=== PATIENT | female | born 1935 | race Caucasian/White ===

== ENCOUNTER → 2019-05-02 | Outpatient (CLI) | payer MEDICARE, OTHER, SELFPAY | PROVIDERS: PCP Family Medicine; Visit Provider Internal Medicine Critical Care Medicine | DX: J43.2 Centrilobular emphysema (principal) | CPT/HCPCS: 86038 ×2; 85025; 86430; 36415; 82785; 86226; 86235 ×5; 83520; 82104; 86003 ×26 ==

== ENCOUNTER 2019-12-27 10:55 | Outpatient (CLI) | payer MEDICARE, OTHER, SELFPAY ==
--- NOTE | ~2019-12-27 | CT_ITS ---
EXAMINATION: CT chest wo con DATE: 12/27/2019 11:39 INDICATION: Pulmonary nodule TECHNIQUE: Computed tomography (CT) of the chest was performed without intravenous contrast. The dose -length product (DLP) was 68.52 mGy-cm. Automated exposure control and iterative reconstruction techn ique were employed. COMPARISON: 01/12/2019, 07/19/2018 FINDINGS: Again seen are scattered pulmonary nodules measuring up to 7 mm without significant change. No new pulmonary nodules are identified. There is no pleural effusion or pneumothorax. Mild emphysem a is noted. There is scarring of the right lung apex. The lungs are free of acute opacities. No patho logically enlarged thoracic lymph nodes are identified. The heart size is normal. Calcified coronary artery atherosclerosis is noted. There is a small sliding hiatal hernia. Chronic anterior wedging is noted in multiple thoracic vertebral bodies. There is moderate thoracic spondylosis. IMPRESSION: 1. Multiple stable pulmonary nodules, most consistent with old granulomatous disease. Reviewed, dictated and finalized at location A. IMPRESSION: 1. Multiple stable pulmonary nodules, most consistent with old granulomatous di sease.
== END 2019-12-27 10:56 | disposition home or self-care (01) ==
PROVIDERS: PCP Family Medicine; Visit Provider Nurse Practitioner Family
DX: R91.8 Other nonspecific abnormal finding of lung field (principal)
CPT/HCPCS: 71250

== ENCOUNTER 2020-04-18 14:03 | Emergency (ER) | payer MEDICARE, OTHER, SELFPAY ==
[2020-04-18] VITALS (12 sets, daily range): BP systolic 138–155; BP diastolic 56–64; PULSE 55–66; RESP 17–18; TEMP 37.1; O2SAT 92–100
--- NOTE | ~2020-04-18 | XR_ITS ---
EXAMINATION: XR wrist LT 2V INDICATION: Left wrist pain and deformity, initial encounter TECHNIQUE: Two views of the left wrist are obtained. COMPARISON: None available FINDINGS: There is an acute, traumatic, closed, oblique fracture of the distal radius. The distal fra cture fragment is dorsally displaced and overriding by approximately 1 cm. There is an acute, traumat ic, closed, oblique fracture of the distal ulna. The distal fracture fragment is also dorsally displa melody and overriding by approximately 1 cm. Soft tissue swelling surrounds the fractures. No additional acute osseous abnormality is identified. There is moderate osteoarthritis of the wrist. IMPRESSION: 1. Displaced and overriding fractures of the distal radius and ulna. Reviewed, dictated and finalized at location A.
--- NOTE | 2020-04-18 14:15 | PC.NURSE ---
pt had lunch at noon .
--- NOTE | 2020-04-18 14:38 | ED.FALL ---
HPI - Fall General Chief Complaint: Fall Stated Complaint: FALL/L WRIST INJURY Time Seen by Provider: 04/18/20 14:33 History of Present Illness HPI Narrative: Fall off of a step ladder onto outstretched left hand. Deformity noted to left wrist with overlying wound. Splinted and given morphine by EMS. Pain is mild on arrival to the ED. No additional pain or injury at this time. Related Data Home Medications Medication Instructions Recorded Confirmed Benefiber Healthy Shape 05/28/19 02/01/20 Probiotic 05/28/19 02/01/20 loratadine [Claritin] 10 mg PO DAILY 05/28/19 02/01/20 montelukast [Singulair] 10 mg PO DAILY 05/28/19 02/01/20 fgjjndib-hkl-ebyw-FA-lutein 1 tablet PO DAILY 05/28/19 02/01/20 [Centrum Silver Women] calcium carbonate 200 mg calcium tablet PO 02/01/20 02/01/20 (500 mg)-vitamin D3 400 unit tablet Allergies Allergy/AdvReac Type Severity Reaction Status Date / Time tobramycin Allergy Unknown Unknown Verified 04/18/20 14:15 indomethacin AdvReac Intermediate Fever and Verified 04/18/20 14:15 Rash Review of Systems Review of Systems: All systems reviewed & are unremarkable except as noted in HPI and below Constitutional: Constitutional: Denies fever(s) Cardiovascular: Cardiovascular: Denies chest pain Respiratory: Respiratory: Denies dyspnea Gastrointestinal: Gastrointestinal: Denies abdominal pain and Denies nausea Musculoskeletal: Musculoskeletal: Denies back pain Neurologic: Denies numbness and Denies weakness [facility] Past Medical History Medical History Anxiety COPD (chronic obstructive pulmonary disease) Dyslipidemia Environmental allergies Essential (primary) hypertension GERD without esophagitis Osteoarthritis Osteoporosis without current pathological fracture Trigger finger Vitamin D deficiency Surgical History Surgical History H/O cataract removal with insertion of prosthetic lens H/O dilation and curettage H/O tubal ligation History of carpal tunnel surgery History of knee replacement History of tonsillectomy Hx of hernia repair Family History Family History Mother Family history of diabetes mellitus in first degree relative Other Diabetes mellitus Social History Social History Smoking status: Former smoker Second hand tobacco smoke exposure: No Smoking end date: 07/06/1967 Alcohol intake: current Substance use: never Substance use type: does not use Gender identity (if verbalized by the patient): Female Sexual Orientation (if Verbalized by the Patient): Straight or Heterosexual Exam Const: General: healthy appearing, no acute distress and alert Orientation/consciousness: patient oriented x3 HENMT: Head: normal to inspection Neck: Neck: normal visual inspection and no lymphadenopathy Chest: Chest palpation & inspection: no tenderness Resp: Effort & Inspection: normal respiratory effort Auscultation: clear to auscultation bilaterally, no rales, no rhonchi and no wheezes Cardio: Jugular venous distension: no JVD Rate: regular rate Rhythm: regular rhythm Heart sounds: no murmurs GI: Inspection: non-distended GI Palp: Yes Soft to palpation and No Tenderness to palpation present (GI) Skin: Wounds: wounds noted (small puncture wound to anterior forearm directly overlying deformity) Neuro: General: patient oriented x3 and moves all extremities Speech: normal speech Extrem: Other: obvious deformity of let distal forearm. Psych: Appearance: well kempt Affect: normal affect Course Vital Signs Vital signs: Vital Signs Temperature 37.1 C 04/18/20 14:07 Pulse Rate 55 L 04/18/20 14:07 Respiratory Rate 18 04/18/20 14:07 Blood Pressure 147/63 H 04/18/20 14:07 Pulse Oximetry 94 04/18/20 14:07
--- NOTE | 2020-04-18 14:40 | ECG_ITS ---
Measurements Intervals [place] Rate: 57 P: 55 LA: 183 QRS: 19 QRSD: 92 T: 69 QT: 435 QTc: 425 Interpretive Statements SINUS BRADYCARDIA BORDERLINE ST-T WAVE ABNORMALITY- HIGH LATERAL LEADS BASELINE ARTIFACT- I, II, III, AVR, AVL, AVF, V1, V6 BORDERLINE ECG Electronically Signed On 04-18-2020 15:58:03 CDT by Massimo Coker D.O.
[2020-04-18 15:02] LABS: Basophils Absolute Auto 0.1 K/mm3 (0.0-0.1); Eosinophils Absolute Auto 0.1 K/mm3 (0-0.3); Eosinophils Percent Auto 1.2 % (0-4.4); Hematocrit 38.6 % (37.0-47.0); Immature Granulocyte Absolute 0.01 K/mm3 (0.00-0.031); Immature Granulocyte Percent A 0.1 % (0-0.5); Lymphocytes Absolute Auto 2.15 K/mm3 (0.9-3.2); Mean Corpuscular HGB Conc 33.7 g/dl (32-36); Mean Corpuscular Hemoglobin 32.8 pg (26-34); Mean Corpuscular Volume 97.5 fl (80-100); Mean Platelet Volume 9.3 fl (7.4-10.4); Monocytes Absolute Auto 0.7 K/mm3 (0.1-0.6); Monocytes Percent Auto 7.6 % (2.6-8.5); Neutrophils Absolute Auto 5.6 K/mm3 (1.3-6.7); Neutrophils Percent Auto 65.1 % (45.5-73.1); Platelet Count Result 297 k/mm3 (150-375); Red Blood Count 3.96 M/mm3 (4.2-5.4); Red Cell Distribution Width 12.9 % (11.5-14.5); White Blood Count 8.6 K/mm3 (4.5-10.0)
[2020-04-18 15:11] LABS: INR 0.9
[2020-04-18 15:12] LABS: Partial Thromboplastin Time 22.3 SECONDS (22.3-36.8)
[2020-04-18 15:14] LABS: Anion Gap 8 mmol/L (8-16); Blood Urea Nitrogen 24 mg/dL (7-17); Calcium 9.2 mg/dL (8.4-10.2); Carbon Dioxide 29 mmol/L (22-30); Chloride 96 mmol/L (98-107); Estimated CRCL calculation 30 ml/min; Estimated Glomerular Filt Rate 47; Glucose 107 mg/dL (65-105); Potassium 4.7 mmol/L (3.4-5.0); Sodium 133 mmol/L (137-145)
[2020-04-18] MEDS: MORPHINE SULFATE (*CRX) 4 MG/ML INJ IV PUSH ×2 (15:14→19:37)
[2020-04-18] MEDS: SODIUM CHLORIDE 0.9% IV 500 ML 999 ML IV CONT (15:36)
[2020-04-18] MEDS: LIDOCAINE HCL 1% LOCAL INJ 20 ML VIAL 10 ML INFILTRATE (15:37)
--- NOTE | 2020-04-18 15:47 | PC.NURSE ---
Initial contact with patient. Dr. Valenzuela at bedside for local block and then relocation of left arm open fx, and splint placement.
--- NOTE | 2020-04-18 15:58 | PC.NURSE ---
erp at bedside and placed long arm on pt.
--- NOTE | 2020-04-18 16:11 | PC.NURSE ---
long arm posterior splint placed with finger trap and counter traction of 10#.
--- NOTE | 2020-04-18 18:56 | PC.NURSE ---
Spoke with Ingrid at [facility], they will be here in about 40 mins to transfer pt.
--- NOTE | 2020-04-18 19:20 | PC.NURSE ---
rn report given to mejia
[2020-04-18] MEDS: ONDANSETRON INJ 4 MG/2 ML VIAL IV PUSH (19:53)
== END 2020-04-18 20:00 | disposition short-term general hospital (02) ==
PROVIDERS: Emergency Provider Emergency Medicine; PCP Family Medicine
DX: S52.502B Unspecified fracture of the lower end of left radius, initial encounter for open fracture type I or II (principal); S52.602B Unspecified fracture of lower end of left ulna, initial encounter for open fracture type I or II; F41.9 Anxiety disorder, unspecified; J44.9 Chronic obstructive pulmonary disease, unspecified; E78.5 Hyperlipidemia, unspecified; I10 Essential (primary) hypertension; K21.9 Gastro-esophageal reflux disease without esophagitis; M19.90 Unspecified osteoarthritis, unspecified site; W11.XXXA Fall on and from ladder, initial encounter
CPT/HCPCS: 25605; 36415; 73100; 80048; 85025; 85610; 85730; 93005; 96365; 96375; 96376; 99285; J0690; J2270; J2405; J7040

== ENCOUNTER 2020-07-10 06:55 | Outpatient (NON) | payer MEDICARE, OTHER, SELFPAY ==
[2020-07-10 23:29] LABS: SARS-CoV-2 RNA PCR Positive
== END 2020-07-10 06:56 ==
LOC: ANHCOVIDDT 06:58
PROVIDERS: PCP Family Medicine; Visit Provider Family Medicine
DX: U07.1 COVID-19 (principal)
CPT/HCPCS: C9803; U0003

== ENCOUNTER 2020-12-04 09:21 | Outpatient (CLI) | payer MEDICARE, OTHER, SELFPAY ==
--- NOTE | ~2020-12-04 | CT_ITS ---
EXAMINATION:CT diagnostic chest wo con DATE: 12/04/2020 09:41 INDICATION: Pulmonary nodules. TECHNIQUE: Computed tomography (CT) of the chest was performed without intravenous contrast. Automate d exposure control and iterative reconstruction technique were employed. The dose-length product (DLP ) was 77.81 mGy-cm. COMPARISON: Chest CT 12/27/2019, 01/12/2019, 07/19/2018 FINDINGS: There is mild emphysema. There is mild atelectasis bilaterally. There is a 5 mm nodule in r ight middle lobe abutting the minor fissure. There are two 5 mm nodules in right lower lobe. There is a 5 mm nodule in left lower lobe. There are a few scattered 2-3 mm nodules. Calcified bilateral lung nodules and calcified right hilar lymph nodes are consistent with old granulomatous disease. No pleu ral effusion. The heart size is normal. There are coronary artery calcifications. No pericardial effu rox. There is a moderate-sized sliding hiatal hernia. There is chronic height loss of multiple verte bral bodies. There is moderate thoracolumbar spondylosis. IMPRESSION: 1. Pulmonary nodules that are stable from 07/19/2018, consistent with granulomatous disease. 2. Mild emphysema. 3. Moderate-sized sliding hiatal hernia. Reviewed, dictated and finalized at location B. IMPRESSION: 1. Pulmonary nodules that are stable from 07/19/2018, consistent with granulomat ous disease. 2. Mild emphysema. 3. Moderate-sized sliding hiatal hernia.
== END 2020-12-04 09:22 | disposition home or self-care (01) ==
PROVIDERS: PCP Family Medicine; Visit Provider Nurse Practitioner Family
DX: R91.8 Other nonspecific abnormal finding of lung field (principal); R05 Cough; Z87.891 Personal history of nicotine dependence; J43.9 Emphysema, unspecified; K44.9 Diaphragmatic hernia without obstruction or gangrene; I25.10 Atherosclerotic heart disease of native coronary artery without angina pectoris; M47.815 Spondylosis without myelopathy or radiculopathy, thoracolumbar region
CPT/HCPCS: 71250

== ENCOUNTER 2021-01-09 16:36 | Outpatient (CLI) | payer MEDICARE, OTHER, SELFPAY ==
--- NOTE | ~2021-01-09 | US_ITS ---
EXAMINATION:US venous doppler LE BI INDICATION:Lower extremity edema TECHNIQUE: Multiple grayscale, color flow and Doppler images of the right and left lower extremity de ep venous systems were obtained and reviewed. COMPARISON:No prior studies for comparison. FINDINGS: The common femoral, superficial femoral and popliteal veins demonstrate normal respiratory variation, augmentation and compressibility. Color flow is also seen within the posterior tibial, pe roneal, greater saphenous and profunda veins. IMPRESSION: 1: No lower extremity deep venous thrombosis. Reviewed, dictated and finalized at location A.
== END 2021-01-09 16:37 | disposition home or self-care (01) ==
LOC: ANHIMG 16:39
PROVIDERS: PCP Family Medicine; Visit Provider Family Medicine
DX: R60.9 Edema, unspecified (principal); M79.604 Pain in right leg; I83.893 Varicose veins of bilateral lower extremities with other complications
CPT/HCPCS: 93970

== ENCOUNTER 2021-02-07 08:49 | Outpatient (CLI) | payer MEDICARE, OTHER, SELFPAY ==
--- NOTE | ~2021-02-07 | US_ITS ---
EXAMINATION: US venous doppler [facility] DATE: 02/07/2021 10:13 INDICATION: Lower limb edema. TECHNIQUE: Grayscale ultrasound images without and with compression and Doppler ultrasound images of the bilateral lower extremity veins were obtained. COMPARISON: Ultrasound 01/09/2021 FINDINGS: The visualized portions of right common femoral vein, profunda (deep) femoral vein, femoral vein, pop liteal vein, peroneal veins, and posterior tibial veins are patent. Right greater saphenous vein sterling ures 8 mm in the upper thigh, 5 mm in the lower thigh, and 4 mm in the calf. There is 1.2 seconds ref lux in right greater saphenous vein in the upper thigh. There is 1.5 seconds reflux in right greater saphenous vein in the mid thigh. There is 1.0 seconds reflux in right greater saphenous vein in the l ower thigh. There is 2.8 seconds reflux in right greater saphenous vein in the calf. Right lesser sap henous vein measures 5 mm in the upper calf and 6 mm in the lower calf. There is no reflux in right l desiree saphenous vein. The visualized portions of left common femoral vein, profunda femoral vein, femoral vein, popliteal v ein, peroneal veins, posterior tibial veins, and greater saphenous vein outflow are patent. Left grea ter saphenous vein measures 5 mm in the upper thigh, 2 mm in the lower thigh, and 2 mm and the cathet er had there is no reflux in left greater saphenous vein. Left lesser saphenous vein measures 4 mm in the upper calf and 5 mm in the lower calf. There is 0.9 seconds reflux in left lesser saphenous vein . IMPRESSION: 1. Reflux in right greater saphenous vein and the left lesser saphenous vein. Reviewed, dictated and finalized at location A.
== END 2021-02-07 08:50 | disposition home or self-care (01) ==
LOC: ANHIMG 08:53
PROVIDERS: PCP Family Medicine; Visit Provider Family Medicine
DX: R60.9 Edema, unspecified (principal); I83.893 Varicose veins of bilateral lower extremities with other complications; M79.604 Pain in right leg
CPT/HCPCS: 93970

== ENCOUNTER → 2021-06-04 09:24 | Outpatient (CLI) | payer MEDICARE, OTHER, SELFPAY ==
[2021-06-04 20:05] LABS: SARS-CoV-2 RNA PCR Negative
== END ==
PROVIDERS: PCP Family Medicine; Visit Provider Family Medicine
DX: Z20.822 Contact with and (suspected) exposure to COVID-19 (principal)
CPT/HCPCS: C9803; U0003; U0005

== ENCOUNTER 2022-06-24 09:15 | Outpatient (CLI) | payer MEDICARE, OTHER, SELFPAY ==
[2022-06-24 17:42] LABS: Basophils Absolute Auto 0.1 K/mm3 (0.0-0.1); Basophils Percent Auto 1.1 % (0.2-1.2); Eosinophils Absolute Auto 0.2 K/mm3 (0-0.3); Eosinophils Percent Auto 2.1 % (0-4.4); Hematocrit 42.1 % (37.0-47.0); Hemoglobin 13.6 g/dL (12.0-15.0); Immature Granulocyte Absolute 0.02 K/mm3 (0.00-0.031); Immature Granulocyte Percent A 0.2 % (0-0.5); Lymphocytes Absolute Auto 2.17 K/mm3 (0.9-3.2); Lymphocytes Percent Auto 26.9 % (18.3-44.2); Mean Corpuscular HGB Conc 32.3 g/dl (32-36); Mean Corpuscular Hemoglobin 32.5 pg (26-34); Mean Corpuscular Volume 100.7 fl (80-100); Mean Platelet Volume 9.5 fl (7.4-10.4); Monocytes Absolute Auto 0.7 K/mm3 (0.1-0.6); Monocytes Percent Auto 8.9 % (2.6-8.5); Neutrophils Absolute Auto 4.9 K/mm3 (1.3-6.7); Neutrophils Percent Auto 60.8 % (45.5-73.1); Platelet Count Result 320 k/mm3 (150-375); Red Blood Count 4.18 M/mm3 (4.2-5.4); Red Cell Distribution Width 13.5 % (11.5-14.5); White Blood Count 8.1 K/mm3 (4.5-10.0)
[2022-06-24 18:26] LABS: Alanine Aminotransferase 28 U/L (6-35); Albumin Level 4.4 g/dL (3.5-5.1); Alkaline Phosphatase 80 U/L (38-126); Anion Gap 5 mmol/L (8-16); Aspartate Amino Transferase 46 U/L (14-36); Bilirubin,Total 0.6 mg/dL (0.2-1.3); Blood Urea Nitrogen 19 mg/dL (7-17); Calcium 9.1 mg/dL (8.4-10.2); Carbon Dioxide 32 mmol/L (22-30); Chloride 101 mmol/L (98-107); Cholesterol 245 mg/dL (0-200); Estimated Glomerular Filt Rate > 60; Glucose 103 mg/dL (65-110); HDL Direct 85 mg/dL; Sodium 138 mmol/L (137-145); Triglycerides 81 mg/dL (<150)
[2022-06-24 18:41] LABS: LDL Cholesterol Direct 112 mg/dL
[2022-06-24 22:07] LABS: Vitamin D 25 Hydroxy 49.8 ng/mL
== END 2022-06-24 09:16 | disposition home or self-care (01) ==
LOC: ANHGOSHLAB 09:17
PROVIDERS: PCP Family Medicine; Visit Provider Family Medicine
DX: J44.9 Chronic obstructive pulmonary disease, unspecified (principal); I10 Essential (primary) hypertension; E78.5 Hyperlipidemia, unspecified; F41.9 Anxiety disorder, unspecified; E53.8 Deficiency of other specified B group vitamins; E55.9 Vitamin D deficiency, unspecified
CPT/HCPCS: 36415; 80053; 80061; 82306; 82607; 84443; 85025

== ENCOUNTER 2022-12-23 10:13 | Outpatient (CLI) | payer MEDICARE, OTHER, SELFPAY ==
[2022-12-23 15:19] LABS: Alanine Aminotransferase 26 U/L (6-35); Albumin Level 4.2 g/dL (3.5-5.1); Alkaline Phosphatase 83 U/L (38-126); Anion Gap 3 mmol/L (8-16); Aspartate Amino Transferase 37 U/L (14-36); Bilirubin,Total 0.6 mg/dL (0.2-1.3); Blood Urea Nitrogen 19 mg/dL (7-17); Carbon Dioxide 32 mmol/L (22-30); Chloride 98 mmol/L (98-107); Estimated Glomerular Filt Rate > 60; Glucose 96 mg/dL (65-110); Potassium 4.4 mmol/L (3.4-5.0); Sodium 133 mmol/L (137-145)
== END 2022-12-23 10:14 | disposition home or self-care (01) ==
LOC: ANHGOSHLAB 10:16
PROVIDERS: PCP Family Medicine; Visit Provider Family Medicine
DX: E78.5 Hyperlipidemia, unspecified (principal); I10 Essential (primary) hypertension; Z79.899 Other long term (current) drug therapy
CPT/HCPCS: 36415; 80053

== ENCOUNTER 2022-12-29 13:30 | Outpatient (RCR) | payer MEDICARE, OTHER, SELFPAY ==
--- NOTE | 2022-11-14 15:27 | STOPEVAL1 ---
Assessment and note entered by Amy Courtney, KITCHEN BATH DESIGNER Evaluation Information Assessment Status Evaluation Diagnosis Dysphonia Onset 6-8 months Subjective Information Patient reports that she feels her voice at times is very raspy. She wants to improve the quality of her voice. She reports she started an inhaler about two years ago. She saw Dr. 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 He recommended Speech Therapy to assist with strengthening of the vocal cords. Reported Pain Level Pain Score 0: Self Report Assessment ST Clinical Summary VOICE EVALUATION Patient was seen for a Voice Evaluation after her physician, Dr. Ortega, noted that she had both an infection at the level of the vocal cords and she had aging vocal cords. Patient attended today to determine if she would benefit from direct Speech Therapy for voicing. Patient exhibited the following issues with her voice: Moderately raspy vocal quality, vocal volume at the higher end of the normal range, and excessive speaking over the phone and in person. Patient described her daily activities as including speaking at length on the phone with various friends/family members, speaking to and interpreting for a neighbor who is extremely hard of hearing, and speaking at length and for residents of a local prison who are unable to speak, forcing her to do most of the talking to create and further the conversation. Patient was instructed in the use of Vocal Hygiene program and Gastroesophageal reflux guidelines. She will be seen for direct Speech Therapy one time weekly for four weeks to be instructed in the use of yawn-sign technique to reduce stress on the vocal cords when speaking, practice to reduce overall vocal loudness to median range of vocal loudness, and to reinforce vocal hygiene program including reducing length of time on the phone, and using compensatory strategies for hearing impaired friends (i.e. use of notebook or white board). Patient voiced understanding of recommendations and
--- NOTE | 2022-12-03 11:13 | PCSTNOTE ---
The patient treatment was not able to be completed on 11/26. Will plan to continue treatment per plan of care.
--- NOTE | 2022-12-22 15:47 | STOPEVAL1 ---
Assessment and note entered by Amy Courtney FUR COMBER Evaluation Information Assessment Status Progress Reported Pain Level Pain Score 0: Self Report Assessment ST Clinical Summary TREATMENT SUMMARY AND PROGRESS NOTE Patient was seen for a Voice Evaluation and then four treatment sessions focusing on instruction for vocal hygiene program, strategies to reduce any symptoms of gastroesophageal reflux disease, then use of yawn-sigh technique and easy onset to reduce stress on the voice and allow for easy initiation of voicing. Patient had to miss two of her scheduled appointments to due illness and other commitment however she otherwise attended regularly and voiced that she completes home program in between session. She was instructed in the use of slightly higher pitch when speaking in order to reduce the stress on the vocal cords and this actually has exhibited an immediate reduction of raspiness, improving the voice to within normal limits however when she drops her voice, such as at the end of a sentence, or if the word has as many vowels as consonants (vowels can contribute to lower voice pitch for this patient) and also voiced consonant sounds, such as about or over , then the raspy vocal quality will be observed in spite of the higher pitch. At this time, patient is quite please with progress. She states her vocal quality is not mild moderate ( 4 or maybe 3 1/2 to 4 out of five, five equaling normal voice) as opposed to moderate (3/5) at time of initial evaluation. She reports the following observations: when patient remembers to elevate her pitch while speaking, she feels his voice is more clear. She states her raspiness comes and goes now as opposed to being constant. Patient stated that if she has a really good cough in the morning, she feels her voice is clearer for a while. Patient reminds herself to elevate her pitch when speaking on the phone with other people. She recalls this a good portion of the time. She stated that if she forgets to elevate her pitch when speaking with others, eventually develops a burning sensation which wears her out; this is not present at this time during the treatment session. When asked about the raspiness
--- NOTE | 2023-01-13 15:46 | PCSTNOTE ---
Therapist called patient and left message approximately two weeks ago concerning check-up and possible scheduling another visit and patient did not return call or at least therapist was not notified of a return call. Called today and again got voicemail, left a message to call back tomorrow or discharge at this time. Awaiting return call; if no contact, patient will be discharged tomorrow.
--- NOTE | 2023-01-16 14:22 | STOPDC ---
Assessment and note entered by Amy Courtney RACING DRIVER Evaluation Information Assessment Status Discharge - Pt Not Presen Assessment ST Clinical Summary DISCHARGE SUMMARY This patient was seen for an initial evaluation for voice on 12/15 with five additional sessions one time weekly with occasional cancellations. Patient presented with a moderately raspy vocal quality at that time. She was instructed in the areas of vocal hygiene program, gastroesophageal reflux precautions, and exercises to promote relaxation and reduced tension in the vocal cords while speaking. Patient voiced good understanding and completed exercises well. The most challenging behavior change for her has been to limit the amount of speaking she does at one time as well as reducing overall vocal loudness secondary to having a good friend who is extremely hard of hearing. She is being discharged with home program established and no further direct Speech Therapy indicated although voice does have instances of hoarseness secondary to above-mentioned occasions. Thank you for this referral.
== END 2023-01-16 15:01 | disposition home or self-care (01) ==
LOC: ANHST 13:30
PROVIDERS: PCP Family Medicine; Visit Provider Otolaryngology
DX: R49.0 Dysphonia (principal); J38.7 Other diseases of larynx
CPT/HCPCS: 92507; 92524

== ENCOUNTER 2023-04-16 | Day surgery (SDC) | payer MEDICARE, OTHER, SELFPAY ==
--- NOTE | 2023-04-09 13:58 | PC.NURSE ---
Report to the Outpatient Waiting Room, entrance under the green pavilion located off [facility], at time _0600 on date ___04/16/23____. Planned Procedure Time: __0730 . Time changes happen often and if your time is changed the preop area will call you the afternoon before. - You and your visitor will be asked to self-screen and do not enter if you have any COVID symptoms. - A mask is optional within the hospital at this time. Patients may have clear liquids (water, carbonated beverages, clear teas, apple juice) until 3 hours prior to surgery with a maximum of 20 ounces. - No food from midnight until time of surgery - Infants may have breast milk until 4 hours before surgery, formula 6 hours prior to surgery. - Children will be allowed to drink immediately following surgery. If applicable, please bring a bottle or sippy cup to assist with drinking. Juice, water, soda, and popsicles are readily available. For infants on formula, please bring formula the day of surgery. Pacifiers are allowed. Take the following medications with a SIP of water the morning of surgery: __INHALER,METOPROLOL DO NOT STOP ANY OF YOUR OTHER PRESCRIPTION MEDICATIONS PRIOR TO SURGERY ?EXCEPT THE FOLLOWING Medications to discontinue per physician __ALL VITAMINS AND SUPPLEMENTS 3 DAYS PRE OP.LAST DOSE 04/12/23 Please no make-up, nail sinhala, hairspray, perfume, deodorant, or body powder the day of surgery. No jewelry (including any body piercings) or valuables the day of surgery, leave them at home. Please take a shower or bath the night before, or the morning of, surgery with an antibacterial soap. Wear comfortable, loose fitting clothing. Children are encouraged to wear pajamas. - Jewelry must be removed prior to entering the operating room. Rings and piercings that are not removed may be cut off. - The hospital will not accept responsibility for valuables. - Please leave all valuables, including medications, at home the day of surgery. If you are going home after surgery, a licensed package delivery driver must drive you home. - NO public transportation without another adult if you receive anesthesia. - We recommend that an adult stay with you for 24 hours following discharge. - We also recommend that you do not drive, make important decision, drink alcoholic beverages, or take any drugs that were not prescribed by your health care provider for at least 24 hours after your discharge time. For Pediatric surgeries, we recommend two adults accompany the child home. Follow any additional instructions given to you from your surgeon. If you or anyone in your household have experienced Covid symptoms in the past week, please notify your surgeon or the nurse liaison at the phone number below for possible testing. Telephone instructions given to __PATIENT and asked if any additional questions and then verbalized understanding. Patient advised to call surgeon office or pre surgery nurse liaison [phone] if any additional questions.
[2023-04-09 14:07] VITALS: BMI 25.0
[2023-04-16 06:20] VITALS: BP 188/55; PULSE 60; RESP 16; TEMP 36.7; O2SAT 100
[2023-04-16] MEDS: LACTATED RINGERS 1,000 ML 30 ML IV CONT (07:05)
--- NOTE | 2023-04-16 07:10 | WPDHPUPDATE1 ---
History and Physical Update Update Date/Time: 04/16/23 07:10 History and Physical has been reviewed, including an updated exam of the patient. There are NO changes in the patient's condition. Risks, benefits, and alternatives have been discussed and questions answered. Patient agrees to proceed with procedure.
--- NOTE | 2023-04-16 07:12 | WPDANESEPPF ---
Anes - Initial Pre Proc Eval Procedure: Operation Date: 04/16/23 07:30 Proposed Procedures p Left Partial Palmar Fasciectomy - Gato Landin MD Date/Time: 04/16/23 07:12 Surgeon: Gato Landin MD Pre Op Diagnosis: Dupuytren's Contracture Lt Fouth and Fifth Fingers Patient Data Age: 88 Gender: F Height: 1.65 m Weight: 68.05 kg Allergies Allergy/AdvReac Type Severity Reaction Status Date / Time tobramycin Allergy Unknown Unknown Verified 04/16/23 06:59 indomethacin AdvReac Intermediate Fever and Verified 04/16/23 06:59 Rash amlodipine AdvReac Mild pedal edema Verified 04/16/23 06:59 fluticasone furoate AdvReac Mild Rash Verified 04/16/23 06:59 [From Trelegy Ellipta] lisinopril AdvReac Mild Cough Verified 04/16/23 06:59 umeclidinium AdvReac Mild Rash Verified 04/16/23 06:59 [From Trelegy Ellipta] vilanterol AdvReac Mild Rash Verified 04/16/23 06:59 [From Trelegy Ellipta] Home Medications Medication Instructions Recorded Confirmed Type Benefiber Healthy Shape 1 tbsp PO DAILY 05/28/19 04/09/23 History niwuxjxr-mlob-yjgk 8 mg-folic 400 1 tablet PO DAILY 05/28/19 04/09/23 History mcg-K 50 mcg-lutein 300 mcg tablet (Centrum Silver Women) calcium carbonate 200 mg calcium 1 tablet PO DAILY 02/01/20 04/09/23 History (500 mg)-vitamin D3 400 unit tablet loratadine 10 mg tablet (Claritin) 10 mg PO DAILY 01/09/21 04/09/23 History carboxymethylcellulose sodium 0.5 1 drp EACH EYE BID 10/09/21 04/09/23 History % eye drops in a dropperette (Refresh Plus) lactobacillus combination no.9 4 4,000 mmu cells PO DAILY 12/17/21 04/09/23 History billion cell capsule (Adult 50 Plus Probiotic) atorvastatin 10 mg tablet 10 mg PO QHS #90 tabs 12/23/22 04/09/23 Rx fluticasone propionate 50 2 spray intranasal DAILY PRN 06/20/23 10/05/23 History mcg/actuation nasal Allergy Symptoms spray,suspension (Flonase Allergy Relief) losartan 100 mg tablet 100 mg PO DAILY #90 tabs 12/23/22 04/09/23 Rx metoprolol succinate 25 mg 25 mg PO DAILY #90 tabs 12/23/22 04/09/23 Rx tablet,extended release 24 hr omeprazole 20 mg capsule,delayed 20 mg PO DAILY #90 caps 12/23/22 04/09/23 Rx release azelastine 137 mcg (0.1 %) nasal 1 spray intranasal Q12H #30 mL 01/20/23 04/09/23 Rx spray aerosol montelukast 10 mg tablet See Rx Instructions .Route 03/04/23 04/09/23 Rx .COMPLEX #90 tabs glycopyrrolate 9 mcg-formoterol 2 puff inhalation BID #10.7 grams 04/13/23 Rx 4.8 mcg HFA aerosol inhaler ([employer]) Patient hx anesthesia problems: none Family hx anesthesia problems: none Results Review: All pre-operative results and documents have been reviewed as part of the pre-operative evaluation. [facility] Past Medical History Medical History Anxiety Carpal tunnel syndrome of left wrist Centrilobular emphysema COPD (chronic obstructive pulmonary disease) Cough Dupuytren's contracture of left hand Dyslipidemia Environmental allergies Essential (primary) hypertension GERD without esophagitis Hiatal hernia Incisional hernia Osteoarthritis Osteoporosis without current pathological fracture Other computer terminal operator (current) drug therapy Periumbilical hernia Pulmonary nodule, left Trigger ring finger of right hand Varicose veins of both legs with edema Vitamin D deficiency Surgical History Surgical History H/O cataract removal with insertion of prosthetic lens (Unknown) H/O colonoscopy (~2017) H/O dilation and curettage (Unknown) H/O tubal ligation (Unknown) History of carpal tunnel surgery of right wrist (~2008) History of knee replacement Left - 2009 Right - 1999 History of left knee replacement History of open reduction and internal fixation (ORIF) procedure (~2019) 04/2020 - Left wrist History of right knee joint replacement History of tonsillectomy ([facility]
[2023-04-16] MEDS: LIDO 1%/EPINEPHRINE 1:100,000 50 ML VIAL 10 ML INFILTRATE (08:05)
[2023-04-16 09:24] VITALS: BP 147/48; PULSE 69; RESP 12; O2SAT 93
--- NOTE | 2023-04-16 09:31 | P.OP_ITS ---
Procedure Note - Detailed Date of Procedure 04/16/23 Pre-op Diagnosis Dupuytren's Contracture Lt Fouth and Fifth Fingers Post-op Diagnosis Same Procedure Performed Left partial palmar fasciectomy Surgeon Gato Landin MD Research Librarian Peter Anesthesia General Description of Procedure The palm and ulnar 2 digits were marked over the disease area of the left palm with her consent. She was then rolled to the operating room and placed supine on the operating table. She was given sedation anesthetic with an LMA. The left upper extremity was prepped and draped in usual fashion. Proposed incision lines were marked on the hand. The extremity was exsanguinated and the tourniquet inflated to 250 mmHg. 1% lidocaine with epinephrine was locally infiltrated. The 1st incision involved a diagonal incision near the distal palmar crease. From that point were able to access cords over the 4th and 5th metacarpals. The 2nd incision was a volar midline incision on the 4th finger. The remaining palmar fascia was removed through that incision and the 2 digital nerves to the 4th digit were identified and the dissection continued out the finger. On the radial side there was a spiral cord. The neurovascular bundles were protected. The mass was removed. The site was irrigated and the tourniquet was released. The wound was closed with interrupted or running 5 0 nylon. A Z-plasty was created at the metacarpophalangeal flexion crease of the 4th . Full extension was achieved. After releasing the tourniquet the fingers appeared to perfuse well. The usual bandage was applied and she was discharged from the operating room in stable condition. She is being discharged home with instructions in wound care and follow-up and a prescription for hydrocodone 6. Estimated Blood Loss 2 Tourniquet Time 50 Drains No Packing No Pathology None sent Complications No immediate complications Condition Stable Disposition Same day
[2023-04-16 09:50] VITALS: BP 166/54; PULSE 62; RESP 16
[2023-04-16 10:12] VITALS: BP 150/59; PULSE 56; RESP 14
[2023-04-16 10:37] VITALS: BP 145/58; PULSE 55; RESP 15
[2023-04-16] MEDS: oxyCODONE HCL (*CRX) 5 MG TAB IR PO (10:37)
== END 2023-04-16 10:52 | disposition home or self-care (01) ==
PROVIDERS: PCP Family Medicine; Visit Provider Plastic Surgery
PROC: (CPT 26045; principal; 2023-04-16 07:30)
DX: M72.0 Palmar fascial fibromatosis [Dupuytren] (principal)
CPT/HCPCS: 26123; 26125; A9270; J1200; J2405; J2704; J7120

== ENCOUNTER 2023-07-14 10:23 | Outpatient (CLI) | payer MEDICARE, OTHER, SELFPAY ==
[2023-07-14 19:26] LABS: Alanine Aminotransferase 27 U/L (6-35); Alkaline Phosphatase 84 U/L (38-126); Anion Gap 6 mmol/L (8-16); Aspartate Amino Transferase 41 U/L (14-36); Bilirubin,Total 0.6 mg/dL (0.2-1.3); Blood Urea Nitrogen 24 mg/dL (7-17); Calcium 9.3 mg/dL (8.4-10.2); Carbon Dioxide 29 mmol/L (22-30); Chloride 102 mmol/L (98-107); Cholesterol 216 mg/dL (0-200); Estimated Glomerular Filt Rate 59; Glucose 92 mg/dL (65-110); HDL Direct 82 mg/dL; Potassium 3.9 mmol/L (3.4-5.0); Sodium 137 mmol/L (137-145); Triglycerides 52 mg/dL (<150)
[2023-07-14 19:36] LABS: LDL Cholesterol Direct 105 mg/dL
[2023-07-14 20:16] LABS: Basophils Absolute Auto 0.1 K/mm3 (0.0-0.1); Basophils Percent Auto 1.4 % (0.2-1.2); Eosinophils Absolute Auto 0.2 K/mm3 (0-0.3); Eosinophils Percent Auto 3.3 % (0-4.4); Hematocrit 41.5 % (37.0-47.0); Hemoglobin 13.1 g/dL (12.0-15.0); Immature Granulocyte Absolute 0.01 K/mm3 (0.00-0.031); Immature Granulocyte Percent A 0.1 % (0-0.5); Lymphocytes Absolute Auto 2.57 K/mm3 (0.9-3.2); Lymphocytes Percent Auto 35.7 % (18.3-44.2); Mean Corpuscular HGB Conc 31.6 g/dl (32-36); Mean Corpuscular Hemoglobin 31.9 pg (26-34); Mean Platelet Volume 10.1 fl (7.4-10.4); Monocytes Absolute Auto 0.6 K/mm3 (0.1-0.6); Monocytes Percent Auto 8.3 % (2.6-8.5); Neutrophils Absolute Auto 3.7 K/mm3 (1.3-6.7); Neutrophils Percent Auto 51.2 % (45.5-73.1); Platelet Count Result 348 k/mm3 (150-375); Red Blood Count 4.11 M/mm3 (4.2-5.4); Red Cell Distribution Width 13.2 % (11.5-14.5); White Blood Count 7.2 K/mm3 (4.5-10.0)
[2023-07-14 20:35] LABS: Vitamin D 25 Hydroxy 69.4 ng/mL
== END 2023-07-14 10:24 | disposition home or self-care (01) ==
LOC: ANHGOSHLAB 10:25
PROVIDERS: PCP Family Medicine; Visit Provider Family Medicine
DX: E78.5 Hyperlipidemia, unspecified (principal); J44.9 Chronic obstructive pulmonary disease, unspecified; E53.8 Deficiency of other specified B group vitamins; I10 Essential (primary) hypertension; E55.9 Vitamin D deficiency, unspecified
CPT/HCPCS: 36415; 80053; 80061; 82306; 82607; 84443; 85025

== ENCOUNTER 2024-02-02 10:20 | Outpatient (CLI) | payer MEDICARE, OTHER, SELFPAY ==
[2024-02-02 18:44] LABS: Alanine Aminotransferase 24 U/L (6-35); Alkaline Phosphatase 85 U/L (38-126); Anion Gap 6 mmol/L (4-12); Aspartate Amino Transferase 47 U/L (14-36); Bilirubin,Total 0.4 mg/dL (0.2-1.3); Blood Urea Nitrogen 28 mg/dL (7-17); Calcium 9.4 mg/dL (8.4-10.2); Carbon Dioxide 33 mmol/L (22-30); Chloride 94 mmol/L (98-107); Estimated Glomerular Filt Rate 59; Glucose 86 mg/dL (65-110); Potassium 4.2 mmol/L (3.4-5.0); Sodium 133 mmol/L (137-145)
== END 2024-02-02 10:21 | disposition home or self-care (01) ==
LOC: ANHGOSHLAB 10:21
PROVIDERS: PCP Family Medicine; Visit Provider Family Medicine
DX: E78.5 Hyperlipidemia, unspecified (principal); I10 Essential (primary) hypertension
CPT/HCPCS: 36415; 80053

== ENCOUNTER 2024-02-08 07:29 | Outpatient (CLI) | payer MEDICARE, OTHER, SELFPAY ==
--- NOTE | ~2024-02-08 | CT_ITS ---
EXAMINATION: CT abdomen pelvis w con DATE: 02/08/2024 08:25 INDICATION: Unspecified abdominal pain. TECHNIQUE: Computed tomography (CT) of the abdomen and pelvis was performed with 100 mL Omnipaque 350 intravenous contrast. Automated exposure control and iterative reconstruction technique were employe d. The dose-length product was 341.61 mGy-cm. COMPARISON: CT abdomen and pelvis 07/19/2018 FINDINGS: The visualized portions of the lung bases demonstrate mild atelectasis. There is a stable 5 mm nodule in left lower lobe, likely benign. No pleural effusion. The heart size is normal. No peric ardial effusion. There is a moderate-sized sliding hiatal hernia. The liver, gallbladder, spleen, meza creas, and adrenal glands are normal. There are cysts in the kidneys measuring up to 10 mm on the rig ht. There is calcified atherosclerosis of the aorta and many of the other arteries. There is divertic ulosis of the colon without evidence of diverticulitis. The appendix is normal. There is an infraumbi lical ventral hernia containing nonobstructed small bowel. There are no pathologically enlarged lymph nodes. There is no free intraperitoneal fluid. There are old healed fractures of left superior and i nferior pubic rami and left parasymphyseal pubis. There is severe lumbar spondylosis. There are chron ic compression fractures of L2 and L3. There is a benign bone island in L4 vertebral body. IMPRESSION: 1. Infraumbilical ventral hernia containing unobstructed small bowel. 2. Moderate-sized sliding hiatal hernia. Reviewed, dictated and finalized at location A.
== END 2024-02-08 07:30 | disposition home or self-care (01) ==
PROVIDERS: PCP Family Medicine; Visit Provider Family Medicine
DX: K43.2 Incisional hernia without obstruction or gangrene (principal); K44.9 Diaphragmatic hernia without obstruction or gangrene; R10.9 Unspecified abdominal pain
CPT/HCPCS: 74177; Q9967

== ENCOUNTER 2024-03-14 07:12 | Outpatient (CLI) | payer MEDICARE, OTHER, SELFPAY ==
--- NOTE | ~2024-03-14 | NM_ITS ---
EXAMINATION: NM flores stress w perfusion DATE: 03/14/2024 10:36 INDICATION: Other forms of dyspnea. TECHNIQUE: Rest images were obtained following intravenous administration of 10.6 mCi Tc99m tetrofosm in (Myoview). The patient was infused intravenously with Lexiscan (regadenoson). Then, 34.2 mCi Tc99m tetrofosmin (Myoview) was administered intravenously, and stress images were obtained. Data was halley nstructed into short axis and horizontal and vertical long axis SPECT images. Gated SPECT images were also obtained. COMPARISON: CT abdomen and pelvis 02/08/2024 FINDINGS: There is no definite reversible or fixed perfusion abnormality to suggest ischemia or infar ction. There is no segmental wall motion abnormality. Left ventricular ejection fraction measures 6 4%. IMPRESSION: 1. No definite ischemia or infarct. 2. Normal left ventricular ejection fraction measuring 64%. Reviewed, dictated and finalized at location A.
--- NOTE | 2024-03-14 07:56 | EST_ITS ---
Patient Info Name: Dorian Edgar Age: 88 years : 1935 Gender: Female Ht: 148 in Wt: 150 lbs BSA: 2.46 m2 HR: 53 bpm BP: 192 / 72 mmHg Exam Date: 03/14/2024 8:10 AM Exam Location: Echo Lab Patient Status: Outpatient Admit Date: 03/14/2024 Staff Ordering Physician: Massimo Coker DO Attending Provider: Massimo Coker DO Exercise Technologist: Moira Guallpa RDCS Exercise Physician: Massimo Coker DO Exam Type: CA stress flores w NM Study Info A regadenoson stress test was performed. Summary 1. 1. Negative lexiscan stress test for ischemic ST changes by ECG criteria. 2. 2. Baseline hypertension. 3. 3. Nuclear scan to follow and will be reported separately. Please correlate with it. 4. 4. Patient informed of the above results. Protocol: Lexiscan Stress ECG Details Stage: REST Duration (min): 3 min : 7 sec HR (bpm): 54 SBP (mmHg): 192 DBP (mmHg): 72 Stage: REST Duration (min): 8 min : 49 sec HR (bpm): 56 SBP (mmHg): 180 DBP (mmHg): 72 Stage: STAGE 1 Duration (min): 0 min : 59 sec HR (bpm): 73 SBP (mmHg): 188 DBP (mmHg): 66 Stage: RECOVERY Duration (min): 1 min : 0 sec HR (bpm): 122 SBP (mmHg): 188 DBP (mmHg): 66 Stage: RECOVERY Duration (min): 2 min : 0 sec HR (bpm): 74 SBP (mmHg): 188 DBP (mmHg): 66 Stage: RECOVERY Duration (min): 3 min : 0 sec HR (bpm): 71 SBP (mmHg): 188 DBP (mmHg): 66 Stage: RECOVERY Duration (min): 3 min : 20 sec HR (bpm): 71 SBP (mmHg): 156 DBP (mmHg): 60 Rest HR: 56 bpm Peak HR: 122 bpm Rest Sys BP: 180 mmHg Peak Sys BP: 188 mmHg Max Pred HR: 132 bpm % Max Pred HR: 92 % Target HR: 112 bpm Max RPP: 22,936 bpm*mmHg Termination Reason: Completed protocol Cardiac Symptoms: Shortness of breath Total Time: 1 min : 0 sec Rest Chambers BP: 72 mmHg Peak Chambers BP: 66 mmHg Total Dose: 0.4 mg Resting ECG Sinus bradycardia, cannot r/o septal infarct, age indeterminate. Stress ECG No ST changes. Arrhythmias None. Report Signatures
== END 2024-03-14 07:13 | disposition home or self-care (01) ==
PROVIDERS: PCP Family Medicine; Visit Provider Internal Medicine Cardiovascular Disease
DX: Z01.818 Encounter for other preprocedural examination (principal); R06.09 Other forms of dyspnea; I10 Essential (primary) hypertension
CPT/HCPCS: 78452; 93017; A9502; J2785

== ENCOUNTER 2024-04-13 15:33 | Inpatient (IN) | payer MEDICARE, OTHER, SELFPAY ==
[2024-04-07 11:32] VITALS: BMI 25.0
--- NOTE | 2024-04-07 11:55 | PC.NURSE ---
Report to the Outpatient Waiting Room, entrance under the green pavilion located off [facility], at time __09:00am___on date 04/13/24 . Planned Procedure Time: _11:00am .? Time changes happen often and if your time is changed the preop area will call you the afternoon before. - You and your visitor will be asked to self-screen and do not enter if you have any COVID symptoms. Please call surgeon if you need to reschedule. - A mask is optional within the hospital at this time. Patients * - No food or drink from midnight until time of surgery and no smoking. Take only the following medications with a SIP of water on the morning of surgery: Metoprolol, Inhaler and eye drops DO NOT STOP ANY OF YOUR OTHER PRESCRIPTION MEDICATIONS PRIOR TO SURGERY EXCEPT THE FOLLOWING Medications to discontinue per physician ____all vitamins, supplements, probiotics and herbs 3 days prior to surgery per Anesthesia Date to take last dose____04/09/24 Please no make-up, nail lao, hairspray, perfume, deodorant, or body powder the day of surgery.? No jewelry (including any body piercings) or valuables the day of surgery, leave them at home.? Please take a shower or bath the night before, or the morning of, surgery with an antibacterial soap.? Wear comfortable, loose fitting clothing.? - Jewelry must be removed prior to entering the operating room.? Rings and piercings that are not removed may be cut off. - The hospital will not accept responsibility for valuables.? - Please leave all valuables, including medications, at home the day of surgery. If you are going home after surgery, a licensed regional driver must drive you home.? - NO public transportation without another adult if you receive anesthesia. - We recommend that an adult stay with you for 24 hours following discharge. - We also recommend that you do not drive, make important decision, drink alcoholic beverages, or take any drugs that were not prescribed by your health care provider for at least 24 hours after your discharge time. Follow any additional instructions given to you from your surgeon. Telephone instructions given to ___patient and asked if any additional questions and then verbalized understanding. Patient advised to call surgeon office or pre surgery nurse liaison [phone] if any additional questions.
--- NOTE | 2024-04-12 10:54 | PM.SD2 ---
Same Day Admit/Disch: HPI History of Present Illness Chief complaint: Incisional hernia Narrative: Dorian Edgar is a 89 year old female who has noticed a bulge in the lower abdomen, between the pubis and umbilicus, that has been bothering her. She noticed it about 2 years ago. But then, about 6 months ago, the size of the hernia increased and she also noticed increased pain. She does not have problems with urination or bowel movements. The bulge from the hernia will occasionally get quite large and uncomfortable. She has a history of a previous laparoscopic left inguinal hernia with open umbilical hernia repair without mesh in February of 2017. The umbilical hernia recurred and a laparoscopic repair of the recurrent umbilical hernia was performed in October of 2018, also at another facility. The 2019 repair was performed with 11 cm diameter Ventralight circular mesh. Review of CT scan shows the umbilical hernia repair to be intact but an incisional hernia caudal to the umbilicus is present with nonobstructed bowel. The dimensions of this hernia are 4.5 x 3.3 cm. Patient is taken to surgery at this time for robotic laparoscopic repair of this lower abdominal incisional hernia with mesh. The hernia was unable to be completely reduced so is incarcerated. [facility] Past Medical History Medical History Anxiety Carpal tunnel syndrome of left wrist Centrilobular emphysema COPD (chronic obstructive pulmonary disease) Cough WOODWARD (dyspnea on exertion) Dupuytren's contracture of left hand Dyslipidemia Environmental allergies Essential (primary) hypertension GERD without esophagitis Hiatal hernia Incisional hernia Osteoarthritis Osteoporosis without current pathological fracture Other mcfp (current) drug therapy Periumbilical hernia Pulmonary nodule, left Trigger ring finger of right hand Varicose veins of both legs with edema Vitamin D deficiency Surgical History Surgical History H/O cataract removal with insertion of prosthetic lens (Unknown) H/O colonoscopy (~2017) H/O dilation and curettage (Unknown) H/O tubal ligation (Unknown) History of carpal tunnel surgery of right wrist (~2008) History of hand surgery (~04/2023) left partial palmar Fasciectomy(04/27) History of knee replacement Left - 2009 Right - 1999 History of left knee replacement History of open reduction and internal fixation (ORIF) procedure (~2019) 04/2020 - Left wrist History of right knee joint replacement History of tonsillectomy (Unknown) Hx of hernia repair x2 - umblical hernia repair - 2019 Family History Family History Mother Family history of diabetes mellitus in first degree relative Other Diabetes mellitus Social History Social History Smoking packs per day: 0.5 Smoking cigarettes per day: 10.0 Years smoked: 15 Smoking pack-years: 7.50 Smoking status: Former smoker Second hand tobacco smoke exposure: No Alcohol intake: current Drinks per week: 4 Alcohol use details: 1 glass of wine daily. Substance use: never Substance use type: does not use Do You Feel Safe in your Home?: Yes Lack of Transportation: No Lack of Food: Never True Current Housing: I Have Housing Concerned About Future Housing: No Difficulty Paying Gas/Electric Bills: No Difficulty Paying for Meds: No Currently Unemployed: No Education: High School Diploma/GED Difficulty w/ Childcare or Family Care: No Living arrangements: alone Occupation/Education: retired Gender identity (if verbalized by the patient): Female Sexual Orientation (if Verbalized by the Patient): Straight or Heterosexual Spiritual care concerns: No Same Day Admit/Disch: Med Pre-admit Medications Home Medications Medication Instructions Ken
[2024-04-13] VITALS (13 sets, daily range): BP systolic 135–192; BP diastolic 49–81; PULSE 42–88; RESP 10–20; TEMP 36.4–36.9; O2SAT 94–100
--- NOTE | ~2024-04-13 | XR_ITS ---
Portable chest x-ray Comparison: 01/18/2009 Clinical History: Preoperative clearance Findings: COPD pattern of the lungs present. Calcified right lung granuloma unchanged. Cardiomedias tinal silhouette is stable. Bones and soft tissues are unremarkable. Impression: No acute abnormality. COPD. Reviewed, dictated and finalized at [facility]. Impression: No acute abnormality. COPD.
--- NOTE | 2024-04-13 07:24 | WPDHPUPDATE1 ---
History and Physical Update Update Date/Time: 04/13/24 07:24 History and Physical has been reviewed, including an updated exam of the patient. There are NO changes in the patient's condition. Risks, benefits, and alternatives have been discussed and questions answered. Patient agrees to proceed with procedure.
[2024-04-13] MEDS: LACTATED RINGERS 1,000 ML 30 ML IV CONT ×2 (09:15→14:50)
[2024-04-13] MEDS: ACETAMINOPHEN 500 MG TABLET 1000 MG PO (09:48)
[2024-04-13] MEDS: KETOROLAC 15 MG/ML VIAL (*BKC) IV PUSH (09:49)
--- NOTE | 2024-04-13 10:51 | WPDANESEPPF ---
Anes - Initial Pre Proc Eval Procedure: Operation Date: 04/13/24 11:00 Proposed Procedures p Robotic Laparoscopic Repair Recurrent Incarcerated Incisional Hernia with Mesh - Kleber Knight MD Date/Time: 04/13/24 10:51 Surgeon: Kleber Knight MD Pre Op Diagnosis: Incisional hernia Patient Data Age: 89 Gender: F Height: 1.63 m Weight: 65.7 kg Last Vital Signs Temp 36.6 C 04/13/24 09:50 Pulse 88 04/13/24 09:50 Resp 16 04/13/24 09:50 BP 135/75 04/13/24 09:50 Pulse Ox 100 04/13/24 09:50 O2 Del Method Room Air 04/13/24 09:50 Allergies Allergy/AdvReac Type Severity Reaction Status Date / Time tobramycin Allergy Unknown Unknown Verified 04/13/24 09:46 indomethacin AdvReac Intermediate Fever and Verified 04/13/24 09:46 Rash amlodipine AdvReac Mild pedal edema Verified 04/13/24 09:46 fluticasone furoate AdvReac Mild Rash Verified 04/13/24 09:46 [From Trelegy Ellipta] lisinopril AdvReac Mild Cough Verified 04/13/24 09:46 umeclidinium AdvReac Mild Rash Verified 04/13/24 09:46 [From Trelegy Ellipta] vilanterol AdvReac Mild Rash Verified 04/13/24 09:46 [From Trelegy Ellipta] Home Medications Medication Instructions Recorded Confirmed Type Benefiber Healthy Shape 1 tbsp PO DAILY 05/28/19 04/13/24 History lslulwam-ztph-nemq 8 mg-folic 400 1 tablet PO DAILY 05/28/19 04/13/24 History mcg-K 50 mcg-lutein 300 mcg tablet (Centrum Silver Women) calcium carbonate 200 mg calcium 1 tablet PO DAILY 02/01/20 04/13/24 History (500 mg)-vitamin D3 400 unit tablet loratadine 10 mg tablet (Claritin) 10 mg PO DAILY 01/09/21 04/13/24 History lactobacillus combination no.9 4 4,000 mmu cells PO DAILY 12/17/21 04/13/24 History billion cell capsule (Adult 50 Plus Probiotic) atorvastatin 10 mg tablet 10 mg PO QHS #90 tabs 12/23/22 04/13/24 Rx glycopyrrolate 9 mcg-formoterol 2 puff inhalation BID #10.7 grams 04/13/23 04/13/24 Rx 4.8 mcg HFA aerosol inhaler (Bevespi Aerosphere) melatonin 3 mg tablet 6 mg PO QHS 07/14/23 04/13/24 History losartan 100 mg tablet 100 mg PO DAILY #90 tabs 01/12/24 04/13/24 Rx metoprolol succinate 50 mg 50 mg PO DAILY #90 tabs 01/12/24 04/13/24 Rx tablet,extended release 24 hr montelukast 10 mg tablet 10 mg PO DAILY 02/11/24 04/13/24 History (Singulair) omeprazole 20 mg capsule,delayed 20 mg PO DAILY #90 caps 02/22/24 04/13/24 Rx release cyclosporine 0.05 % eye drops in a 1 drp EACH EYE BID 04/07/24 04/13/24 History dropperette (Restasis) psmjgges-mctzhyiig-mzzcgxvm 3.5 1 drp ophthalmic (eye) BID 04/07/24 04/13/24 History mg/mL-10,000 unit/mL-0.1% eye drops Laboratory Tests 04/13/24 09:17 Blood Type O Positive Antibody Screen Negative Patient hx anesthesia problems: none Family hx anesthesia problems: none Results Review: All pre-operative results and documents have been reviewed as part of the pre-operative evaluation. [facility] Past Medical History Medical History Anxiety Carpal tunnel syndrome of left wrist Centrilobular emphysema COPD (chronic obstructive pulmonary disease) Cough WOODWARD (dyspnea on exertion) Dupuytren's contracture of left hand Dyslipidemia Environmental allergies Essential (primary) hypertension GERD without esophagitis Hiatal hernia Incisional hernia Osteoarthritis Osteoporosis without current pathological fracture Other terminal block assembler (current) drug therapy Periumbilical hernia Pulmonary nodule, left Trigger ring finger of right hand Varicose veins of both legs with edema Vitamin D deficiency Surgical History Surgical History H/O cataract removal with insertion of prosthetic lens (Unknown) H/O colonoscopy (~2018) H/O dilation and curettage (Unknown) H/O tubal ligation (Unknown) History of carpal tunnel surgery of right wrist (~2008) History of hand surgery (~04/06
[2024-04-13] MEDS: ceFAZolin 2 GM/D5W 50 ML 2 GM/50 ML BAG IVPB (11:27)
[2024-04-13] MEDS: BUPIVACAINE/EPINEPHRINE 0.5% 50 ML VIAL 27 ML INFILTRATE (12:51)
--- NOTE | 2024-04-13 15:03 | W.PM.PROC2 ---
Procedure Note - Detailed Date of Procedure 04/13/24 Pre-op Diagnosis Incarcerated ventral incisional hernia with 4.5 cm defect Post-op Diagnosis Same Procedure Performed robotic laparoscopic repair incarcerated ventral incisional hernia with 4.5 cm defect. Surgeon Kleber Knight MD Talent Program Manager darshan Talavera [employer] PACKER Anesthesia General and Local Indications patient had a laparoscopic umbilical hernia repair in 2019 at another facility. She has a infraumbilical, suprapubic, incisional ventral hernia that is incarcerated and has a 4.[address] scan. She is taken to surgery now for robotic laparoscopic repair Findings findings were as expected. There was circular mesh and adhesions from her previous laparoscopic repair of recurrent umbilical hernia in 2019. There was a chronically incarcerated incisional hernia about the level of her Pfannenstiel scar in the lower abdomen. The defect measured 4.5 cm x 3.4 cm. No bowel involvement was noted. The hernia was well above the pubis and urinary bladder. Description of Procedure Patient was taken to the operating room and placed in a supine position. She was induced into general anesthesia. A 3 way Camarena catheter was placed. The abdomen is prepped and draped. The initial trocar was placed in the left subcostal position. This was a 5 mm applied Medical optical trocar. There were anterior abdominal wall adhesions making it impossible to place any additional robotic trocars. I placed a 2nd 5 mm applied Medical trocar under direct visualization in the left lateral mid abdomen. From there I was able to use sharp dissection and cautery to take down anterior abdominal wall adhesions both in the area of the previously placed mesh and those that were cephalad to that. Once the space was cleared that we could safely place the robotic ports, we proceeded with that. under direct visualization and directly across from the initial left subcostal trocar, an 8 mm robotic trocar was placed. In the same fashion another 8 mm robotic trocar was placed just right of midline. Local was infiltrated prior to placement of all of the trocars. The 5 mm left subcostal trocar was then switched out for an 8 mm robotic trocar under direct visualization. The lateral 5 mm trocar was left in place as an fitter's assistant port. Patient was placed in Trendelenburg. robotic arms were brought into the field. The camera was docked and targeted. The operating ports were then placed and positioned. The surgeon went to the robotic console. The remainder of the anterior abdominal wall adhesions were then taken down exposing the mesh associated with the previous umbilical hernia repair. The hernia defect was easily seen. And our tap approach was chosen. At the lower aspect of the circular umbilical hernia mesh, I started a retroperitoneal dissection. The peritoneum was very thin particularly on the patient's left. Once the plane was established, I went to a retro rectus plane on both the right and the left side. Care was taken not to injure the linea alba but to take the properitoneal fat with the dissection. Once I was at the level of the hernia defect, I carefully dissected around the hernia defect and was able to eventually reduce a large ball of chronically incarcerated properitoneal fat. There was other fatty tissue in the hernia defect which was reduced as well. The dissection plane was then continued below the semicircular line and towards the pubis. The defect was high enough in the lower abdominal midline that I did not half to expose the pubis. The previously performed left inguinal hernia repair was noted and was in good condition. The hernia was now exposed and then I dissected the 2 rectus muscles away from the area of the defect and also dissected them from the anterior rectus fascia so that we would have room for our mesh. All looked good. The hernia defect was 4.5 cm in transverse dimension as expected on the CT scan. I use
[2024-04-13] MEDS: fentaNYL CITRATE INJ (*CRX) 100 MCG/2 ML VIAL 25 MCG IV PUSH ×3 (15:10→16:01)
--- NOTE | 2024-04-13 16:27 | SUR.PHASEI ---
This RN gave 25mcg of Fentanyl at 1620 and forgot to chart it before processing the transfer. A total of 100mcg given in PACU.
--- NOTE | 2024-04-13 16:38 | ADMGEN ---
This patient, Dorian Edgar, was admitted to Medical Room 250-01. Patient/family oriented to hospital policies and general routines including ID bracelet, bed and alarms, visiting hours, pain management, procedures, bathroom and other care routines, personal items, smoking policy, room service/diet, and visiting hours. Information on how to activate the Rapid Response Team has been discussed. Patient/Family are encouraged to report perceived risks to care and to ask questions if they do not understand what they are told or what they should do.
[2024-04-13] MEDS: LACTATED RINGERS 1,000 ML 100 ML IV CONT (17:58)
[2024-04-13] MEDS: oxyCODONE/ACETAMINOPHEN (*CRX) 5-325 MG TABLET 0.5 TABLET PO ×2 (17:58→22:44)
[2024-04-13] MEDS: cycloSPORINE 0.4 ML OPHTH SOLUTION 1 DROP EACH EYE (18:10)
[2024-04-14] MEDS: ACETAMINOPHEN 500 MG TABLET PO ×2 (02:43→08:32)
[2024-04-14 04:18] VITALS: BP 146/55; PULSE 61; RESP 18; TEMP 36.6; O2SAT 96
[2024-04-14 07:17] LABS: Hematocrit 35.4 % (37.0-47.0); Hemoglobin 11.7 g/dL (12.0-15.0); Mean Corpuscular HGB Conc 33.1 g/dl (32-36); Mean Corpuscular Hemoglobin 32.8 pg (26-34); Mean Corpuscular Volume 99.2 fl (80-100); Mean Platelet Volume 9.1 fl (7.4-10.4); Platelet Count Result 283 k/mm3 (150-375); Red Blood Count 3.57 M/mm3 (4.2-5.4); Red Cell Distribution Width 13.2 % (11.5-14.5); White Blood Count 11.7 K/mm3 (4.5-10.0)
[2024-04-14 07:39] LABS: Anion Gap 8 mmol/L (4-12); Blood Urea Nitrogen 19 mg/dL (7-17); Calcium 8.8 mg/dL (8.4-10.2); Carbon Dioxide 27 mmol/L (22-30); Chloride 95 mmol/L (98-107); Estimated CRCL calculation 36 ml/min; Estimated Glomerular Filt Rate > 60; Glucose 110 mg/dL (65-110); Potassium 4.7 mmol/L (3.4-5.0); Sodium 130 mmol/L (137-145)
[2024-04-14] MEDS: cycloSPORINE 0.4 ML OPHTH SOLUTION 1 DROP EACH EYE (08:28)
[2024-04-14] MEDS: LOSARTAN POTASSIUM 100 MG TABLET PO (08:32)
[2024-04-14 08:33] VITALS: PULSE 60
[2024-04-14] MEDS: PANTOPRAZOLE 40 MG TABLET PO (08:33)
[2024-04-14] MEDS: MONTELUKAST SODIUM 10 MG TABLET PO (08:33)
[2024-04-14] MEDS: LORATADINE 10 MG TABLET PO (08:33)
[2024-04-14] MEDS: ATORVASTATIN 10 MG TABLET PO (08:33)
[2024-04-14] MEDS: METOPROLOL SUCCINATE EXT REL 50 MG TABCR PO (08:33)
[2024-04-14] MEDS: ENOXAPARIN 40 MG/0.4 ML SYRINGE SUB-Q (08:34)
[2024-04-14] MEDS: oxyCODONE/ACETAMINOPHEN (*CRX) 5-325 MG TABLET 0.5 TABLET PO ×3 (10:00→21:24)
[2024-04-14 10:09] VITALS: BP 134/52; PULSE 60; RESP 14; TEMP 36.3; O2SAT 96
[2024-04-14 14:09] VITALS: BP 130/42; PULSE 65; RESP 16; TEMP 36.4; O2SAT 95
--- NOTE | 2024-04-14 15:20 | PM.PNGS ---
Progress Note: A&P Assessment and Plan (1) Incarcerated incisional hernia: Code(s): K43.0 - Incisional hernia with obstruction, without gangrene Status: Acute Assessment and Plan: Postop day 1 and doing well. Will advance to a regular diet. Start increasing activity, ambulate in the halls and get up to chair. Hopefully discharge home tomorrow if she continues to improve. Plan I have discussed the patient's case and plan of care with Dr. Desir. Subjective Subjective Date/Time Seen: 04/14/24 15:20 Post Op day: 1 (robotic laparoscopic repair incarcerated ventral incisional hernia with 4.5 cm defect) Patient reports: tolerating liquids well, voiding w/o difficulty, no flatus and no bowel movement Interval history: Patient postop day 1 and reportedly doing well. She is complaining of bilateral shoulder pain, which is worse than her minimal incisional soreness. No nausea or vomiting. She has only had full liquids, but is tolerating this well. She is concerned about feeling too weak to get up and down out of bed, but has been ambulating well. Her daughter is at the bedside and plans on staying with her at her house for a few days after she is discharged home. Exam Const: General: comfortable and no acute distress GI: Inspection: non-distended and incision (incisions dry and intact) GI Palp: Yes Soft to palpation, Yes Tenderness to palpation present (GI) (incisional), No Guarding due to palpation present (GI) and Yes Other GI palpation findings present (repair intact) Auscultation: normal bowel sounds Neuro: General: moves all extremities and no focal motor deficits Extrem: General: no calf tenderness and no edema Psych: Mental Status: mental status grossly normal Insight: Good insight present (Psych) Objective Data Vital Signs Vital Signs: Vital Signs - 24 hr 04/13/24 15:35 04/13/24 15:50 04/13/24 16:05 Temperature Pulse Rate 54 L 61 46 L Respiratory Rate 12 14 12 Blood Pressure 154/59 H 162/75 H Pulse Oximetry 95 95 95 Oxygen Delivery Room Air Room Air Room Air 04/13/24 16:20 04/13/24 16:50 04/13/24 17:09 Temperature 97.6 F 97.6 F Pulse Rate 50 L 50 L 49 L Respiratory Rate 20 18 18 Blood Pressure 168/71 H 160/64 H 192/57 H Pulse Oximetry 94 98 97 Oxygen Delivery Room Air 04/13/24 17:35 04/13/24 17:35 04/13/24 17:00 Temperature 97.6 F 97.6 F Pulse Rate 49 L 49 L Respiratory Rate 18 18 Blood Pressure 177/58 H 177/58 H Pulse Oximetry 99 99 Oxygen Delivery Room Air 04/13/24 18:35 04/13/24 20:00 04/14/24 04:18 Temperature 97.6 F 98.4 F 97.8 F Pulse Rate 57 L 60 61 Respiratory Rate 17 18 18 Blood Pressure 185/49 H 140/60 146/55 H Pulse Oximetry 100 98 96 Oxygen Delivery 04/14/24 08:33 04/14/24 10:09 04/14/24 14:09 Temperature 97.4 F L 97.6 F Pulse Rate 60 60 65 Respiratory Rate 14 16 Blood Pressure 134/52 L 130/42 L Pulse Oximetry 96 95 Oxygen Delivery Intake/Output Intake/Output: Intake & Output 04/11/24 04/12/24 04/13/24 04/14/24 23:59 23:59 23:59 23:59 Intake Total 920 500 Balance 920 500 Meds/Results Medications: Active Medications Generic Name Dose Route Start Last Admin Trade Name Freq PRN Reason Stop Dose Admin Acetaminophen 500 mg 04/13/24 16:24 04/14/24 08:32 Acetaminophen 500 Mg Tablet PO 500 mg Q6H PRN Administration Pain Rated 1-3 Atorvastatin Calcium 10 mg 04/14/24 09:00 04/14/24 08:33 Atorvastatin 10 Mg Tablet PO 10 mg DAILY MASODU Administration Cyclosporine 1 drop 04/13/24 17:00 04/14/24 08:28 Cyclosporine 0.4 Ml Ophth Solution EACH EYE 1 drop BID MASOUD Administration Enoxaparin Sodium 40 mg 04/14/24 09:00 04/14/24 08:34 Enoxaparin 40 Mg/0.4 Ml Syringe SUB-Q 40 mg DAILY MASOUD Administration Fentanyl Citrate 12.5 mcg 04/13/24 16:24 Fentanyl Citrate Inj (*Crx) 100 Mcg/2 Ml Vial IV PUSH Q2H PRN Breakthrough Pain Rated 4-6 or NPO Fentanyl Citrate
[2024-04-14 17:31] VITALS: BP 144/57; PULSE 65; RESP 18; TEMP 36.5; O2SAT 92
[2024-04-14] MEDS: MELATONIN 3 MG TABLET 6 MG PO (21:21)
[2024-04-14] MEDS: NEOMYCIN/POLYMYXIN/DEXAMETH OP SUSP 5 ML BTL 1 DROP EACH EYE (21:24)
[2024-04-14 21:34] VITALS: BP 152/54; PULSE 66; RESP 18; TEMP 36.8; O2SAT 93
[2024-04-15 00:53] VITALS: BP 150/63; PULSE 63; RESP 18; TEMP 36.8; O2SAT 95
[2024-04-15] MEDS: oxyCODONE/ACETAMINOPHEN (*CRX) 5-325 MG TABLET 0.5 TABLET PO (04:21)
[2024-04-15 05:01] VITALS: BP 121/60; PULSE 58; RESP 18; TEMP 36.7; O2SAT 95
[2024-04-15 09:11] VITALS: PULSE 66
[2024-04-15] MEDS: METOPROLOL SUCCINATE EXT REL 50 MG TABCR PO (09:11)
[2024-04-15] MEDS: MONTELUKAST SODIUM 10 MG TABLET PO (09:11)
[2024-04-15] MEDS: PANTOPRAZOLE 40 MG TABLET PO (09:12)
[2024-04-15] MEDS: ATORVASTATIN 10 MG TABLET PO (09:12)
[2024-04-15] MEDS: LORATADINE 10 MG TABLET PO (09:12)
[2024-04-15] MEDS: ENOXAPARIN 40 MG/0.4 ML SYRINGE SUB-Q (09:13)
[2024-04-15] MEDS: LOSARTAN POTASSIUM 100 MG TABLET PO (09:13)
[2024-04-15] MEDS: cycloSPORINE 0.4 ML OPHTH SOLUTION 1 DROP EACH EYE (09:13)
--- NOTE | 2024-04-15 09:48 | PM.DS ---
DS: Admitting Diagnosis Discharge Date 04/15/24 Admitting Diagnosis Incarcerated ventral incisional hernia DS: Discharge Diagnosis Discharge Diagnosis (1) Incarcerated incisional hernia: Code(s): K43.0 - Incisional hernia with obstruction, without gangrene Status: Acute Assessment and Plan: status post robotic assisted repair by Dr. Harrison on 04/13, please see full operative report for details of that procedure, home with instructions for routine postoperative care including lifting restrictions, prescriptions for Percocet and Colace, follow-up with Dr. Harrison in 2 weeks (2) Essential (primary) hypertension: Code(s): I10 - Essential (primary) hypertension Status: Acute Assessment and Plan: stable, continue home medication and follow up with primary care physician (3) COPD (chronic obstructive pulmonary disease): Qualifiers: COPD type: unspecified COPD Qualified Code(s): J44.9 - Chronic obstructive pulmonary disease, unspecified Code(s): J44.9 - Chronic obstructive pulmonary disease, unspecified Status: Acute Assessment and Plan: has quit smoking, stable, follow-up with primary care physician (4) GERD without esophagitis: Code(s): K21.9 - Gastro-esophageal reflux disease without esophagitis Status: Acute Assessment and Plan: stable, continue home medications, follow-up with primary care physician DS: Summary Hospital Course Reason for hospitalization: incarcerated ventral incisional hernia Hospital Course: The patient is an 89-year-old female presenting to the hospital with an incarcerated ventral incisional hernia. The patient was taken to the operating room on 04/13 for robotic assisted repair of this hernia. Please see full operative report for details of this procedure. Postoperatively, the patient was admitted to the surgical floor for further observation. On postoperative day 1. , the patient was doing well overall however was having some difficulty with abdominal pain and getting out of bed. Given these findings, she was encouraged to continue to work with ambulation and incentive spirometry. The patient was able to tolerate a diet and her pain for the most part was controlled with p.o. analgesia. On postoperative day 2. , the patient was tolerating a diet and having bowel function. Her pain is well controlled with p.o. analgesia. She is ambulating much more freely without issue. She will be discharged at this time with instructions for postoperative care. She will be sent prescriptions for Percocet and Colace. She will follow up with Dr. Harrison in 2 weeks. Status at Discharge Functional status at discharge: independent ambulation Overall status at discharge: patient is progressing back to baseline Time Spent with Patient Time attestation: Total time spent providing and/or coordinating discharge services: Time spent: Less than 30 minutes Exam Const: General: cooperative, comfortable and no acute distress Resp: Auscultation: clear to auscultation bilaterally Cardio: Rate: regular rate Rhythm: regular rhythm GI: Inspection: normal to inspection, distended and incision GI Palp: Yes abdominal tenderness, Yes Soft to palpation and Yes Tenderness to palpation present (GI) Discharge Plan Discharge Attending physician on discharge: Kleber Harrison Discharging Clinician: Joana Desir Anticipated Discharge Date/Time: 04/15/24 11:00 Patient Disposition: Home, Self-Care Activity: may shower, no driving and other - see discharge instructions Diet: as tolerated Wound Care Instructions: incision open to air Discharge Instructions: DISCHARGE INSTRUCTION SHEET FOR HERNIA AND LAP MAIS[facility] SURGERIES DR. HARRISON 1. May shower the day after surgery ove
[2024-04-15] MEDS: ACETAMINOPHEN 500 MG TABLET PO (09:57)
== END 2024-04-15 13:20 | disposition home or self-care (01) | DRG 355 ==
LOC: ANH2MED 16:34
PROVIDERS: Admitting Provider Surgery; PCP Family Medicine; Visit Provider Surgery
PROC: 0WUF4JZ Supplement Abdominal Wall with Synthetic Substitute, Percutaneous Endoscopic Approach (ICD-10-PCS; principal; 2024-04-13 11:00)
DX: K43.0 Incisional hernia with obstruction, without gangrene (principal); E78.5 Hyperlipidemia, unspecified; I10 Essential (primary) hypertension; J43.2 Centrilobular emphysema; K21.9 Gastro-esophageal reflux disease without esophagitis; Z96.653 Presence of artificial knee joint, bilateral; Z87.891 Personal history of nicotine dependence
CPT/HCPCS: 36415; 71045; 80048; 85027; 86850; 86900; 86901; A9270; C1781; J0690; J1100; J1650; J1885; J2003; J2405; J2704; J3010; J7030; J7120; Q9968

== ENCOUNTER 2024-07-29 08:23 | Outpatient (CLI) | payer MEDICARE, OTHER, SELFPAY ==
--- OUTSIDE RECORDS SUMMARY | 2024-07-29 08:34 | XMS_ITS | Clinical Summary ---
Author Organization [facility] Address [address] [place] [address] Phone Care Team Providers Care Dairy Equipment Mechanic Name Role Phone Unavailable Unavailable Unavailable Reason for Visit and Chief Complaint ELECTRICAL SOLDERER EXAM Plan of Treatment No Plan of Treatment Recorded Assessments Includes: Assessments from this encounter No Assessments Recorded Medical Equipment - Implanted Devices Includes: Current Devices No Medical Equipment Recorded Medications Administered Includes: Administered Medications from this encounter No Administered Medications Recorded Results Includes: Results discussed during this encounter No Results Recorded For Specified Dates History of Present Illness Includes: History of Present Illness from this encounter No History of Present Illness Recorded Social History No Social History Recorded - Smoking Status Unknown Medical History Includes: Medical History addressed during this encounter No Medical History Recorded Family History Includes: Family History addressed during this encounter No Family History Recorded Review of Systems Includes: Review of Systems from this encounter No Review of Systems Recorded Mental Status Includes: Mental Status from this encounter No Mental Status Recorded Functional Status Includes: Functional Status from this encounter No Functional Status Recorded Physical Exam Includes: Physical Exam from this encounter No Physical Exam Recorded Encounters Encounter Provider Location Date Check-In Time Check-Out Time Diagnosis ELECTRICAL SOLDERER EXAM RITESH ORTIZ M.D. [facility] LICENSE ISSUER 02/03/2006 1:31PM 3:33PM Clinical Notes Includes: Clinical Notes from this encounter No Clinical Notes Recorded
--- OUTSIDE RECORDS SUMMARY | 2024-07-29 08:34 | XMS_ITS ---
Care Plan - [facility] Created on: July 29, 2024 ALEXI WARREN : 1935 Sex: Female Author Organization [facility] Address [address] [place] [address] Phone Care Team Providers Care Armature Winder Helper Repair Name Role Phone Unavailable Unavailable Unavailable
--- OUTSIDE RECORDS SUMMARY | 2024-07-29 08:34 | XMS_ITS | Clinical Summary ---
Author Organization [facility] Address [address] [place] [address] Phone Care Team Providers Care Waste Water Worker Name Role Phone Unavailable Unavailable Unavailable Reason for Visit and Chief Complaint PHARMACY TECHNICIAN PER DIEM EXAM Plan of Treatment No Plan of [...] Location Date Check-In Time Check-Out Time Diagnosis PHARMACY TECHNICIAN PER DIEM EXAM RITESH ORTIZ M.D. [facility] HEADER BOSS 02/07/2008 12:37PM 2:07PM Clinical Notes Includes: Clinical Notes from this encounter No Clinical Notes Recorded
--- OUTSIDE RECORDS SUMMARY | 2024-07-29 08:34 | XMS_ITS ---
Author Organization [facility] Address [address] [place] [address] Phone Care Team Providers Care Jewish Thought Professor Name Role Phone Unavailable Unavailable Unavailable Plan of Treatment No Plan of Treatment Recorded Assessments Includes: Assessments for all patient encounters No Assessments Recorded Medical Equipment - Implanted Devices Includes: Current and historical Devices No Medical Equipment Recorded Medications Administered Includes: Administered Medications in patient's chart No Administered Medications Recorded Results Includes: Results from 07/29/2023 through 07/29/2024 No Results Recorded For Specified Dates History of Present Illness History of Present Illness not supported for this document type No History of Present Illness Recorded Social History No Social History Recorded - Smoking Status Unknown Medical History Includes: Medical History in patient's chart No Medical History Recorded Family History Includes: Family History in patient's chart No Family History Recorded Review of Systems Review of Systems not supported for this document type No Review of Systems Recorded Mental Status No Mental Status Recorded Functional Status No Functional Status Recorded Physical Exam Physical Exam not supported for this document type No Physical Exam Recorded Clinical Notes Includes: Signed Clinical Notes starting from 07/25/2022 No Clinical Notes Recorded
--- OUTSIDE RECORDS SUMMARY | 2024-07-29 08:34 | XMS_ITS | Clinical Summary ---
Author Organization [facility] Address [address] [place] [address] Phone Care Team Providers Care Hotel Staff Member Name Role Phone Unavailable Unavailable Unavailable Reason for Visit and Chief Complaint MOLDER EXAM Plan of Treatment No Plan of [...] Location Date Check-In Time Check-Out Time Diagnosis MOLDER EXAM RITESH ORTIZ M.D. [facility] DIALYSIS EQUIPMENT TECHNICIAN 02/04/2007 1:05PM 2:28PM Clinical Notes Includes: Clinical Notes from this encounter No Clinical Notes Recorded
[2024-07-29 12:45] LABS: Basophils Absolute Auto 0.1 K/mm3 (0.0-0.1); Basophils Percent Auto 1.7 % (0.2-1.2); Eosinophils Absolute Auto 0.3 K/mm3 (0-0.3); Eosinophils Percent Auto 4.9 % (0-4.4); Hematocrit 40.5 % (37.0-47.0); Immature Granulocyte Absolute 0.01 K/mm3 (0.00-0.031); Immature Granulocyte Percent A 0.2 % (0-0.5); Lymphocytes Absolute Auto 2.15 K/mm3 (0.9-3.2); Lymphocytes Percent Auto 32.9 % (18.3-44.2); Mean Corpuscular HGB Conc 32.1 g/dl (32-36); Mean Corpuscular Hemoglobin 32.3 pg (26-34); Mean Corpuscular Volume 100.7 fl (80-100); Mean Platelet Volume 10.1 fl (7.4-10.4); Monocytes Absolute Auto 0.6 K/mm3 (0.1-0.6); Monocytes Percent Auto 8.9 % (2.6-8.5); Neutrophils Absolute Auto 3.4 K/mm3 (1.3-6.7); Neutrophils Percent Auto 51.4 % (45.5-73.1); Platelet Count Result 328 k/mm3 (150-375); Red Blood Count 4.02 M/mm3 (4.2-5.4); Red Cell Distribution Width 13.1 % (11.5-14.5); White Blood Count 6.5 K/mm3 (4.5-10.0)
[2024-07-29 12:49] LABS: Alanine Aminotransferase 24 U/L (6-35); Albumin Level 4.1 g/dL (3.5-5.1); Alkaline Phosphatase 85 U/L (38-126); Anion Gap 6 mmol/L (4-12); Aspartate Amino Transferase 57 U/L (14-36); Bilirubin,Total 0.6 mg/dL (0.2-1.3); Blood Urea Nitrogen 22 mg/dL (7-17); Calcium 9.4 mg/dL (8.4-10.2); Carbon Dioxide 31 mmol/L (22-30); Chloride 99 mmol/L (98-107); Cholesterol 192 mg/dL (0-200); Estimated Glomerular Filt Rate > 60; Glucose 82 mg/dL (65-110); HDL Direct 77 mg/dL; Potassium 4.2 mmol/L (3.4-5.0); Sodium 136 mmol/L (137-145); Triglycerides 69 mg/dL (<150)
[2024-07-29 13:00] LABS: LDL Cholesterol Direct 86 mg/dL
[2024-07-29 13:13] LABS: Vitamin D 25 Hydroxy 60.5 ng/mL
== END 2024-07-29 08:24 | disposition home or self-care (01) ==
LOC: ANHGOSHLAB 08:24
PROVIDERS: PCP Family Medicine; Visit Provider Family Medicine
DX: E78.5 Hyperlipidemia, unspecified (principal); E53.8 Deficiency of other specified B group vitamins; I10 Essential (primary) hypertension; R73.9 Hyperglycemia, unspecified; E55.9 Vitamin D deficiency, unspecified; K59.00 Constipation, unspecified
CPT/HCPCS: 36415; 80053; 80061; 82306; 82607; 83036; 84443; 85025

== ENCOUNTER 2024-08-29 12:14 | Outpatient (CLI) | payer MEDICARE, OTHER, SELFPAY ==
--- NOTE | ~2024-08-29 | DEXA_ITS ---
Bone Density Report Name: ALEXI WARREN Age: 89 Sex: Female Ethnicity: White Date of : 1935 Indication: postmenopausal; screening for osteoporosis; height loss; Referring Provider: KIRSTEN LAYNE Study: Bone densitometry was performed. Exam Date: August 29, 2024 Accession number: [id number] Bone Density: Region BMD T-score Z-score Classification AP Spine(L2, L3, L4) 0.896 -1.7 1.3 Osteopenia Femoral Neck (Left) 0.748 -0.9 1.6 Normal Total Hip (Left) 0.773 -1.4 1.0 Osteopenia Femoral Neck (Right) 0.643 -1.9 0.7 Osteopenia Total Hip (Right) 0.720 -1.8 0.5 Osteopenia Total Hip Mean 0.746 -1.6 0.8 Osteopenia World Health Organization criteria for BMD impression classify patients as: Normal (T-score at or above -1.0), Osteopenia (T-score between -1.0 and -2.5), or Osteoporosis (T-score at or below -2.5). 10-year Fracture Risk(1): Major Osteoporotic Fracture 12% Hip Fracture 3.9% Reported Risk Factors: [place] (), Neck BMD=0.643, BMI=26.7 (1) FRAX(R) Version 3.08. Fracture probability calculated for an untreated patient. Fracture probability may be lower if the patient has received treatment. Clinical Information Provided by Patient: Has used the following medications: Vitamin D, Calcium Has the following medical conditions: COPD Patient maximum height was 67 Menopause Age: 50 Does not regularly consume dairy products Onset of menses at age 12 Number of children 3 Impression: The patient has low bone mass, based on the Right Femoral Neck T-score. The patient has an estimated ten-year risk of hip fracture of 3.9% and an estimated ten-year risk of major fracture of 12%, based on the WHO FRAX algorithm. Discussion: BONE DENSITY IS LOW AT ONE OR MORE SKELETAL SITES. THE PATIENT'S BMD AND CLINICAL RISK FACTORS CONTRIBUTE TO THIS PATIENT'S INCREASED RISK OF FRACTURE. This patient's lowest T-score is low at one or more skeletal sites. It meets the World Health Organization's (WHO) criteria for ?low bone mass? (T-score between -1.0 and -2.5). The patient's 10-year risk of hip fracture as calculated by FRAX exceeds the threshold where pharmacological therapy is recommended by the National Osteoporosis Foundation (NOF). However, all treatment decisions require clinical judgment and consideration of individual patient factors, including patient preferences, comorbidities, previous drug use, risk factors not captured in the FRAX model (e.g., frailty, falls, vitamin D deficiency, increased bone turnover, interval significant decline in bone density) and possible under or overestimation of fracture risk by FRAX. The patient should follow a healthful lifestyle (good nutrition with adequate calcium and vitamin D, and appropriate weight-bearing exercise). Follow-Up: Consider a repeat BMD and Vertebral Fracture Assessment (VFA) exam in 2 years or sooner if medically necessary, to reassess this patient's status. Reported by: MILADY on 08/29/2024 12:54:00 PM. Reviewed, dictated and finalized at location [facility]
--- OUTSIDE RECORDS SUMMARY | 2024-08-29 13:54 | XMS_ITS | Clinical Summary ---
Author Organization [facility] Address [address] [place] [address] Phone Care Team Providers Care Painter Bottom Name Role Phone Unavailable Unavailable Unavailable Reason for Visit and Chief Complaint GUEST SERVICES COORDINATOR EXAM Plan of Treatment No Plan of [...] Location Date Check-In Time Check-Out Time Diagnosis GUEST SERVICES COORDINATOR EXAM RITESH ORTIZ M.D. [facility] COPS 02/07/2008 12:37PM 2:07PM Clinical Notes Includes: Clinical Notes from this encounter No Clinical Notes Recorded
--- OUTSIDE RECORDS SUMMARY | 2024-08-29 13:54 | XMS_ITS | Continuity of Care Document ---
Author Organization [facility] Address [id number] [place] [address] [address] [place] [address] Phone Care Team Providers Care Heavy Machinery Assembler Name Role Phone Sean GONZALEZ, Dana Unavailable Unavailable Allergies, Adverse Reactions, Alerts Substance Reaction Status Criticality tobramycin Active No Information indomethacin Active No Information Medications Medication Instructions Dosage Effective Dates (start - stop) Status Comments Restasis 0.05 % eye drops in a dropperette instill 1 drop by ophthalmic route every 12 hours into affected eye(s) 1.00 drop - Active Generic okay to prescribe omeprazole (unknown strength) Not Available - Active KAPSPARGO SPRINKLE (unknown strength) take 1 capsule by oral route every day Not Available - Active LOSARTAN POTASSIUM (unknown strength) Not Available - Active atorvastatin (unknown strength) Not Available - Active BENEFIBER (unknown strength) Not Available - Active BEVESPI AEROSPHERE (unknown strength) inhale 2 puff by inhalation route 2 times every day in the morning and evening Not Available - Active CALCIUM CARBONATE/VITAMIN D3 (unknown strength) Not Available - Active CENTRUM WOMEN (unknown strength) take 1 tablet by oral route every day with food Not Available - Active CLARITIN (unknown strength) take 10 milliliter by oral route every day Not Available - Active MELATONIN (unknown strength) Not Available - Active NEOMYCIN-POLYMYXIN -DEXAMETH (unknown strength) instill 1 drop by Ophthalmic route every 1 - 4 bedtimes into affected eye(s) Not Available - Active [employer] HEALTH (unknown strength) Not Available - Active SYSTANE GEL (unknown strength) Not Available - Active SYSTANE (unknown strength) Not Available - Active SYSTANE ULTRA (unknown strength) instill 1 by Ophthalmic route every 2 days Not Available - Active Procedures Procedure Date OFFICE/OUTPATIENT VISIT, JOLENE Advance Directives Directive Yes / No Effective Date File Name No Information Encounters Encounter Description Practice Location Reason(s) For Visit Diagnoses Date Provider Providers Copied on Encounter OFFICE/OUTPA TIENT VISIT, [facility], [address], [place], [place], [id number], [place] tel:[phone] OPH CONSULT ALINA CARRILLO Dry Eye (chief complaint) Keratoconjunctiv itis sicca of both eyes not due to Sjogren's syndromePresence of intraocular lensTrichiasis of right lower eyelid [address], [place], [address], [place]. tel: [phone] Referring Provider: Laney PCP A.. Family History Family Member Type Diagnosis Age At Onset No Information Payers Payer name Insurance type Covered republican ID Authoriza tion(s) MEDICARE OF [place] MB [id number] [facility] [id number] Social History Type Description Quantity Date Captured Comments Alcohol Use Details Unknown Caffeine Use Details Unknown Tobacco Use Status No Information Smoking Status Former smoker Smoking Tobacco Use Details Cigarette: No Details Available Cigarette: No Details Available Non-Smoking Tobacco Use Details : No Details Available : No Details Available Sex Female Vital Signs Date / Time: Height Weight BMI Pulse Rate Blood Pressure Temperature Respiratory Rate Body Surface Area Head Circumference BMI percentile Pulse Ox Inhaled Ox 1:21 PM 66.00 in 148.00 lbs 23.8 9 kg/m eter (2) Chief Complaint And Reason For Visit From encounter dated 08/25/2023 12:05'. Dry Eye (chief complaint). Description: The 88 year old female presents for evaluation of Dry Eye. Vision seems stable with current correction. When eyes are lubricated they are comfortable. Eye are dry, watery, and red. OU has BLL eyelashes that turn in and irritate the eye. Pt goes to [facility] to haveeyelashes trimmed. Uses Systane Complete gtts and Systane Night Gel martha during the day and Systane Nighttime martha for Severe dry eye at night. Pt states she occasionally used Nfc-[id number]-Nlo martha/gtts when eyes are really irritated. Has floaters, but does not effect her vision. Has trouble with glare atnight while driving. Denies FOL and distortions.-Has questions about Restasis -Declined new MRx today - has an appt. scheduled with [facility] Plan Of Treatment Date Type Action Status Goal Tobacco cessation counseling completed History Of Present Illness Encounter Date Complaint History Of Prese nt Illness Dry Eye The 88 year old female presents for evaluation of Dry Eye. Vision seems stable with current correction. When eyes are lubricated they are comfortable. Eye are dry, watery, and red. OU has BLL eyelashes that turn in and irritate the eye. Pt goes to [facility] to have eyelashes trimmed. Uses Systane Complete gtts and Systane Night Gel martha during the day and Systane Nighttime martha for Severe dry eye at night. Pt states she occasionally used Nqw-Qscc-Zpb martha/gtts when eyes are really irritated. Has floaters, but does not effect her vision. Has trouble with glare at night while driving. Denies FOL and distortions.-Has questions about Restasis -Declined new MRx today - has an appt. scheduled with [facility] Instructions Date Instruction Additional Infor grey Impression/Plan Related to Prese nce of intraocular lens Impression/Plan Related to Kerat oconjunctivitis sicca of both eyes not due to Sjogren's syndrome Impression/Plan Related to Trich iasis of right lower eyelid Assessments Type Assessment Date assessment Keratoconjunctivitis sicca of both eyes not due to Sjogren's syndrome assessment Presence of intraocular lens Aug impression Presence of intraocular lens: Z9 6.1. 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 -ReoccurringThe patient currently visits [facility] for eyelash removal every 3-4 weeks.
--- OUTSIDE RECORDS SUMMARY | 2024-08-29 13:54 | XMS_ITS ---
Care Plan - [facility] Created on: August 29, 2024 ALEXI WARREN : 1935 Sex: Female Author Organization [facility] Address [address] [place] [address] Phone Care Team Providers Care Chief Building Inspector Name Role Phone Unavailable Unavailable Unavailable
--- OUTSIDE RECORDS SUMMARY | 2024-08-29 13:54 | XMS_ITS | Encounter Summary ---
Author Organization [facility] Address [address] [place] [address] Care Team Providers Care Expeller Worker Name Role Phone Jimmy Badillo Primary Care Provider [phone] Favio Mcdowell MD Primary Care Provider Encounter Details Date Type Department Care Team (Late st Contact Info) Description 07/03/2014 Orders Only [facility] [address] [place] [address] Scanning, Provider Social History Tobacco Use Types Packs/Day Years Used Date Smoking Tobacco: Former Cigarettes Q uit: 07/06/1968 Comments:Smoking History Pac ks/day: 1 Packs Alcohol Use Standard Drinks/Week Comments Yes 0 (1 standard drink = 0.6 oz pur e alcohol) Comments Unknown Sex and Gender Information Value Date Recorded Sex Assigned at Not on file Legal Sex Female 8:29 PM CAR COUPLER Gender Identity Not on file Sexual Orientation Not on file documented as of this encounter Plan of Treatment Not on file documented as of this encounter Procedures Procedure Name Priority Date/Time Associated Diagnosis Comments SCAN - RADIOLOGY/IMAGING 07/03/2014 documented in this encounter Results * SCAN - RADIOLOGY/IMAGING (07/03/2014) Anatomical Region Laterality Modality Other us Provider Scanning Final Result documented in this encounter Visit Diagnoses Not on filedocumented in this encounter Care Teams Expeller Worker Relationship Specialty Start Date End Date Jimmy aBdillo [address] [place] [address] PCP - General 06/22/13 05/06/20 Favio Mcdowell MD [address] [place] [address] PCP - General Family Practice 05/07/20 documented as of this encounter
--- OUTSIDE RECORDS SUMMARY | 2024-08-29 13:54 | XMS_ITS | Clinical Summary ---
Author Organization [facility] Address [address] [place] [address] Phone Care Team Providers Care Outer Diameter Grinder Tool Name Role Phone Unavailable Unavailable Unavailable Reason for Visit and Chief Complaint METAL BURRER EXAM Plan of Treatment No Plan of [...] Location Date Check-In Time Check-Out Time Diagnosis METAL BURRER EXAM RITESH ORTIZ M.D. [facility] TOP LIFT SCOURER 02/04/2007 1:05PM 2:28PM Clinical Notes Includes: Clinical Notes from this encounter No Clinical Notes Recorded
--- OUTSIDE RECORDS SUMMARY | 2024-08-29 13:54 | XMS_ITS ---
Author Organization [facility] Address [address] [place] [address] Phone Care Team Providers Care Costumer Assistant Name Role Phone Unavailable Unavailable Unavailable Plan of Treatment No Plan of Treatment Recorded Assessments Includes: Assessments for all patient encounters No Assessments Recorded Medical Equipment - Implanted Devices Includes: Current and historical Devices No Medical Equipment Recorded Medications Administered Includes: Administered Medications in patient's chart No Administered Medications Recorded Results Includes: Results from 08/29/2023 through 08/29/2024 No Results Recorded For Specified Dates History [...]
--- OUTSIDE RECORDS SUMMARY | 2024-08-29 13:54 | XMS_ITS | Clinical Summary ---
Author Organization [facility] [address] Address [address] [email or web address] [address] Phone Care Team Providers Care Automation Developer Name Role Phone Favio Mcdowell MD Primary Care Provider Allergies Active Allergy Reactions Criticality Noted Date Comments Umeclidinium-Vilanterol Rash Medium 01/30/2020 Indomethacin Unknown 08/25/2023 Tobramycin Other (See comments) Medium 10/18/2018 Medications atorvastatin (LIPITOR) 10 mg tablet take 1 tablet by oral route every day 0 0 6 Active omeprazole (PriLOSEC) 20 mg capsule take 1 capsule by oral route every day before a meal 0 0 7 Active carboxymethylce llulose-glycern 0.5-0.9 % drops Administer into both eyes. Active calcium carbonate-vitam in D2 (OSCAL) 250 (625)-125 mg-unit per tablet Take 1 tablet by mouth daily. Active montelukast (SINGULAIR) 10 mg tablet Take 1 tablet (10 mg total) by mouth nightly Active sertraline (ZOLOFT) 25 mg tablet Take 25 mg by mouth daily Active cycloSPORINE (RESTASIS) 0.05 % ophthalmic emulsion 1 drop 2 (two) times a day Active acetaminophen 500 mg capsuleIndicati ons:Pain Take 2 capsules (1,000 mg total) by mouth every 6 (six) hours 30 tablet 0 Active Additional Information Patient not taking.Reported on 05/11/2024 senna-docusate (PERICOLACE) 8.6-50 mg Take 2 tablets by mouth daily 30 tablet 0 Active Additional Information Patient not taking.Reported on 05/11/2024 calcium carbonate-vitam in D3 1,250mg (500mg elemental) - 5 mcg (200 units) per tablet Take 1 tablet by mouth daily Active diclofenac DR (VOLTAREN) 25 mg EC tablet Take 25 mg by mouth 2 (two) times a day Active loratadine 10 mg capsule Take 1 capsule by mouth daily Active multivitamin tablet Take 1 tablet by mouth daily Active neomycin-polymy leticia-dexAMETHaso ne (MAXITROL) 3.5mg/mL-10,000 unit/mL-0.1 % ophthalmic suspension 1 Active metoprolol XL (TOPROL-XL) 25 mg extended release tablet Take 1 tablet (25 mg total) by mouth daily 2 Active Bevespi Aerosphere 9-4.8 mcg inhaler Inhale 2 puffs Activ e losartan (COZAAR) 100 mg tablet Take 1 tablet (100 mg total) by mouth daily 4 Active Active Problems Problem Noted Date Diagnosed Date Hyponatremia 04/20/2020 Acute pain due to trauma 04/19/2020 COPD (chronic obstructive pulmonary disease) Essential hypertension 04/19/2020 Mixed hyperlipidemia 04/19/2020 Anxiety 04/19/2020 Type I or II open fracture o f distal end of left radius with ulna 04/18/2020 Overview (04/19/2020): Added automatically from request for surgery [id number] Lung nodule < 6cm on CT 03/04/2017 Left inguinal hernia 02/04/2017 Umbilical hernia without obstruction and without gangrene 02/04/2017 Gastroesophageal reflux disease 09/16/2016 Immunizations Immunization Administration Dates Next Due Influenza, Quadrivalent, Hig h Dose, Preservative Free, Intrr 03/20/2020 Influenza, Quadrivalent, Spl it, Intramuscular 04/18/2019 Influenza, Trivalent, High D ose, Split, Preservative Free, Intramuscular 04/02/2017 Influenza, Trivalent, IM (MDV) 04/28/2016,2013 Influenza, Unspecified 04/05/2020 Pneumococcal Conjugate PCV 13 02/05/2018, 018 Pneumococcal Polysaccharide PPV23 03/31/2007 Tdap 04/18/2020,09/11/2018 ZOSTER Recombinant 11/23/2018,02/21/2018, 018 Surgical History Surgery Date Site/Laterality Comments DILATION AND CURETTAGE OF UTERUS 07/06/1989 - 07/05/1990 postmenopausal bleeding CERVICAL BIOPSY W/ LOOP ELECTRODE EXCISION 07/06/1993 - 07/05/1994 abnormal Pap CARPAL TUNNEL RELEASE 07/06/1992 - 07/05/1993 VEIN LIGATION AND STRIPPING 1958 & 1965 TONSILLECTOMY 07/06/1951 - 07/05/1952 CATARACT EXTRACTION 2004 & 2005 TUBAL LIGATION 07/06/1974 - 07/05/1975 REPLACEMENT TOTAL KNEE 2010 & 2014 KNEE ARTHROSCOPY 07/06/2008 - 07/05/2009 VENTRAL HERNIA REPAIR 07/06/2016 - 07/05/2017 DILATION AND CURETTAGE OF UTERUS 07/06/2012 - 07/05/2013 PMB - ultrasound guided hysteroscopy, D&C. No endometrial tisuse. Uterine perforation. Dr. Howard. FRACTURE SURGERY 07/06/2019 - 07/05/2020 Left Radius and ulna Medical History Medical History Date Comments Hypercholesterolemia Anxiety disorder History of thrombophlebitis History of herniated intervertebral disc Osteopenia Abnormal Pap smear of cervix 1993 Family History Medical History Relation Name Comments Diabetes Brother COPD Father Heart disease Father COD at age 65 Diabetes Mother Hypertension Mother Stroke Mother Diabetes insipidus Sister COD at ag e 5 Hyperlipidemia Son Relation Name Status Comments Brother Father (Age 65) Mother Sister Son Social History Tobacco Use Types Packs/Day Years Used Date Smoking Tobacco: Former Cigarettes 1 16 1 953 - 1969 Smokeless Tobacco: Never Tobacco Cessation:Counseling Given: Yes Comments:Smoking History Packs/day: 1 Packs Alcohol Use Standard Drinks/Week Comments Yes 0 (1 standard drink = 0.6 oz pur e alcohol) Social Connection and Isolation Panel [NHANES] A nswer Date Recorded Frequency of Communication with Friends and Fami ly Not on file 01/30/2020 Frequency of Social Gatherings with Friends and Family Not on file 01/30/2020 Attends Scientologist Services Not on file 01/29 Active Member of Clubs or Organizations Not on f ile 01/30/2020 Attends Club or Organization Meetings Not on luis eduardo e 01/30/2020 Are you , , di vorced, , never , or living with a partner? 01/30/2020 Comments No Sex and Gender Information Value Date Recorded Sex Assigned at Not on file Legal Sex Female 8:29 PM GEOTHERMAL TECHNICIAN Gender Identity Not on file Sexual Orientation Not on file Occupation Industry Job Start Date Job End Date Retired Not on file Not on file Not on file Obstetrics History Para Term AB IAB SAB Ectopic Multiple Livin g Live Births 3 3 3 0 0 0 0 0 0 3 3 Date Outcome GA Total Labor Labor/2nd/3rd Weight Sex Type Anes PTL Trena A1 A5 Name Clin Term Term Term Last Filed Vital Signs Vital Sign Reading Time Taken Comments Blood Pressure 130/60 05/11/2024 2:24 PM GEOTHERMAL TECHNICIAN Pulse 68 04/20/2020 11:37 AM CDT Temperature 36.7 C (98.1 F) 04/20/2020 9:05 AM CDT Respiratory Rate 16 04/20/2020 9:05 AM CDT Oxygen Saturation 93% 04/20/2020 11:37 AM CDT Inhaled Oxygen Concentration - - Weight 68 kg (150 lb) 05/11/2024 2:24 PM GEOTHERMAL TECHNICIAN Height 160 cm (5' 3 ) 05/11/2024 2:24 PM GEOTHERMAL TECHNICIAN Body Mass Index 26.57 05/11/2024 2:24 PM GEOTHERMAL TECHNICIAN Plan of Treatment Health Maintenance Due Date Last Done Comments Depression Screening 1935 Hepatitis B Screening 1953 Well Visit 65+ 2000 Fall Risk Assessment 04/19/2021 04/19/2020 Covid-19 Vaccine (3 - 2023-2 5 season) 2024 09/20/2020, 08/30/2020 Influenza Vaccine (#1) 2024 0, 03/20/2020, 04/18/2019, Additional history exists DTaP/Tdap/Td Vaccine (3 - Td or Tdap) 04/18/2030 04/18/2020, 09/11/2018 Pneumococcal vaccine 65+ Completed 018, 02/04/2018, 03/31/2007 Zoster Vaccine Completed 11/23/2018, 02/03, 02/20/2018 Medical Devices Implanted Type Area Aquatics Manager Device Identifier Shelf Expiration Date Model / Serial / Lot Synthes [id number] 2.4mm 16mm Self Tap Lock Variable Angle Stardrive T8 Screw Bone - [id number] Implanted:Qty: 2 on 04/19/2020 at [facility] Synthes I [id number] / / Synthes 02.118 2.4mm 18mm Self Tap Lock Variable Angle Stardrive T8 Screw Bone - [id number] Implanted:Qty: 2 on 04/19/2020 at [facility] Synthes I 02.210.118 / / Synthes 249.679 Lcp 59mm 7 Hole Shaft Low Profile Cut To Length Condylar Plate - [id number] Implanted:Qty: 1 on 04/19/2020 at [facility] Synthes I 249.679 / / Synthes 202.874 2.7mm 5mm 14mm 2.5mm Self Tap Stardrive Cortical T8 Screw Bone - [id number] Implanted:Qty: 2 on 04/19/2020 at [facility] Synthes I 202.874 / / Plate 22mm Std Xlong 109mm Ss 2.4/2.7mm Screw 6 Hole Head 7 - [id number] Implanted:Qty: 1 on 04/19/2020 by Esthela Clark MD at [facility] Synthes I 11/02/2029 02.111.671S / / [id number] Synthes 201.762 2.4mm 12mm Self Tap Stardrive Cortex T8 Screw Bone - [id number] Implanted:Qty: 1 on 04/19/2020 at [facility] Synthes I 201.762 / / Synthes 201.764 2.4mm 14mm Self Tap Stardrive Cortex T8 Screw Bone - [id number] Implanted:Qty: 2 on 04/19/2020 at [facility] Synthes I 201.764 / / Synthes 212.814 2.4mm 1.9mm 14mm Self Tap Lock Stardrive Conical Head T8 Screw - [id number] Implanted:Qty: 2 on 04/19/2020 at [facility] Synthes I 212.814 / / Synthes 212.810 2.4mm 1.9mm 10mm Self Tap Lock Stardrive Conical Head T8 Screw - [id number] Implanted:Qty: 2 on 04/19/2020 at [facility] Synthes I 212.810 / / Explanted Type Area Aquatics Manager Device Identifier Shelf Expiration Date Model / Serial / Lot Micro[employer]Dos[employer] [id number] Kimber .062in 9in 1 Trocar Smooth Wire Fixation - [id number] Explanted:Qty: 3 on 04/19/2020 at [facility] [employer] [id number] / / [employer] [id number] Kimber .062in 9in 1 Trocar Smooth Wire Fixation - [id number] Explanted:Qty: 1 on 04/19/2020 at [facility] [employer] [id number] / / Synthes 201.772 2.4mm 22mm Self Tap Stardrive Cortex T8 Screw Bone - [id number] Explanted:Qty: 1 on 04/19/2020 at [facility] Synthes I 201.772 / / Synthes 201.762 2.4mm 12mm Self Tap Stardrive Cortex T8 Screw Bone - [id number] Explanted:Qty: 1 on 04/19/2020 at [facility] Synthes I 201.762 / / Synthes 201.764 2.4mm 14mm Self Tap Stardrive Cortex T8 Screw Bone - [id number] Explanted:Qty: 1 on 04/19/2020 at [facility] Synthes I 201.764 / / Insurance MEDICARE [facility] MEDICARE [facility] MEDICARE [facility] MEDICARE [facility] [place] [id number] Advance Directives For more information, please contact: [phone] * Full Code (Latest Code Status on File) Date Activated Date Inactivated Comments 04/19/2020 5:24 AM 04/20/2020 8:31 PM Care Teams Automation Developer Relationship Specialty Start Date End Date Favio Mcdowell MD PCP - General Family Practice 05/07/20
--- OUTSIDE RECORDS SUMMARY | 2024-08-29 13:54 | XMS_ITS | Clinical Summary ---
Author Organization [facility] Address [address] [place] [address] Phone Care Team Providers Care Binder Operator Name Role Phone Jimmy Badillo MD Primary Care Provider [phone] Allergies No known active allergies Medications aspirin (DENITA) 81 mg Oral TabIndications: mon/wed/fri Take 81 mg by mouth. Indications: mon/wed/fri Active multivitamin (DAILY-RUBEN) Oral tablet Take 1 Tab by mouth daily. Active diclofenac sodium EC (VOLTAREN) 25 mg Oral TbEC Take 25 mg by mouth 2 times daily. Active pitavastatin (LIVALO) 2 mg Oral Tab Take 2 mg by mouth daily. Active calcium-vitamin D3 (OS-GAYLE 500+D) 500 mg(1,250mg) -200 unit Oral tablet Take 1 Tab by mouth daily. Active estradiol (ESTRACE) 0.01 % (0.1 mg/g) Vaginal Crea Insert vaginally daily. Active artificial tear, hypromellose, (GENTEAL MILD) 0.2 % OP solution Administer 1 Drop in both eyes 2 times daily as needed. Active HYDROcodone-vladimir taminophen (NORCO) 5-325 mg Oral tablet Take 1 Tab by mouth every 4 hours as needed for Pain, Moderate. 40 Tab 1 3 Active Active Problems Problem Noted Date Diagnosed Date Postmenopausal bleeding 10/28/2012 Social History Tobacco Use Types Packs/Day Years Used Date Smoking Tobacco: Former Cigarettes Q uit: 07/06/1969 Alcohol Use Standard Drinks/Week Comments Yes 5.8 (1 standard drink = 0.6 oz p ure alcohol) social Comments Unknown Sex and Gender Information Value Date Recorded Sex Assigned at Not on file Legal Sex Female 3:37 PM CDT Gender Identity Not on file Sexual Orientation Not on file Occupation Industry Job Start Date Job End Date Not on file Not on file Not on file Not on file Last Filed Vital Signs Vital Sign Reading Time Taken Comments Blood Pressure 147/65 10/28/2012 4:39 PM CDT Pulse 67 10/28/2012 4:39 PM CDT Temperature 37 C (98.6 F) 10/28/2012 4:39 PM CDT Respiratory Rate 20 10/28/2012 4:39 PM CDT Oxygen Saturation 97% 10/28/2012 4:39 PM CDT Inhaled Oxygen Concentration - - Weight 66.1 kg (145 lb 12.8 oz) 10/28/2012 1:01 PM CDT Height 165.1 cm (5' 5 ) 10/13/2012 2:02 PM CDT Body Mass Index 24.26 10/13/2012 2:02 PM CDT Plan of Treatment Health Maintenance Due Date Last Done Comments DTAP/TDAP/TD VACCINES (1 - Tdap) 1954 PNEUMOCOCCAL VACCINE 65+ YEARS (1 of 1 - PCV) 03/19/19 85 ZOSTER VACCINE (1 of 2) 1985 OSTEOPOROSIS SCREENING 2000 RSV VACCINE (60+ or ) (1 - 1-dose 75+ series) 2010 INFLUENZA VACCINE (#1) 2024 Insurance MEDICARE PART A AND B [employer] PPO Advance Directives For more information, please contact: [phone] * Full Code (Latest Code Status on File) Date Activated Date Inactivated Comments 10/28/2012 2:53 PM 10/28/2012 7:29 PM * Full Code Date Activated Date Inactivated Comments 10/28/2012 2:15 PM 10/28/2012 2:53 PM * Full Code Date Activated Date Inactivated Comments 10/28/2012 11:28 AM 10/28/2012 2:15 PM Care Teams Binder Operator Relationship Specialty Start Date End Date Jimmy Badillo MD [address] [place] [address] PCP - General Family Practice 10/13/12
--- OUTSIDE RECORDS SUMMARY | 2024-08-29 13:54 | XMS_ITS | Clinical Summary ---
Author Organization [facility] Address [address] [place] [address] Phone Care Team Providers Care Loom Changeover Operator Name Role Phone Unavailable Unavailable Unavailable Reason for Visit and Chief Complaint PIPE COVERER AND INSULATOR EXAM Plan of Treatment No Plan of [...] Location Date Check-In Time Check-Out Time Diagnosis PIPE COVERER AND INSULATOR EXAM RITESH ORTIZ M.D. [facility] 02/03/2006 1:31PM 3:33PM Clinical Notes Includes: Clinical Notes from this encounter No Clinical Notes Recorded
--- OUTSIDE RECORDS SUMMARY | 2024-08-29 13:54 | XMS_ITS | Continuity of Care Document ---
Author Organization [facility] Address [address] [place] [address] Phone Care Team Providers Care Hammer Shop Supervisor Name Role Phone [facility] Unavailable Unavail able Mell Saab Unavailable Unavailable Procedures Procedure Date Progressive Lens, Plastic Anti-reflective Coating Eye Exam & Treatment Refraction Eye Exam & Treatment Refraction Progressive Lens, Plastic Frames Deluxe Anti-reflective Coating Tax - Medical Eye Exam & Treatment Refraction Advance Directives Directive Yes / No Effective Date File Name No Information Encounters Encounter Description Practice Location Reason(s) For Visit Diagnoses Date Provider Providers Copied on Encounter [facility], [address], [place], [place], [id number], [place] tel:[phone] [facility] No Information 9201 0 [facility] . [address] [facility], [address], [place], [place], [address], [place]. tel:[phone] Referring Provider: Oleg Dorman, [address], [place], [address]. tel:[phone] g Provider: Mell Saab, [address] [facility], [place], [address]. tel:[phone] [facility], [address], [place], [place], [id number], tel:[phone] [facility] No Information 201 0 Heath Dejesus. [address] , [address], [place], [place], [facility], . tel:[phone] [facility], [address] [place] [address] [address], [place], [place], [id number], [place] tel:[phone] [facility] No Information Sep-1 5200 8 Heath Dejesus. [address] , [address], [place], [place], [facility], . tel:[phone] [facility], [address], [place], [place], [id number], tel:[phone] [facility] No Information Sep-1 5200 8 [facility] . [address], [address], [place], [place], [address], . tel:[phone] Referring Provider: Oleg Dorman, [address] [place], [place] [address], [place], [place], [facility]. tel:[phone] wagner Provider: Viridiana Andres, [address] [place] [address], [facility]. tel:[phone] [facility], [address], [place], [place], [id number], tel:[phone] [facility] No Information Sep-0 5200 7 Heath Dejesus. [facility] [facility] , [address], [place], [place], [facility], . tel:[phone] Family History Family Member Type Diagnosis Age At Onset No Information Payers Payer name Insurance type Covered alliance party ID Authoriza tion(s) No Information Social History Type Description Quantity Date Captured Comments Sex Female Smoking Status No Information Chief Complaint And Reason For Visit No Information Reason For Referral Reason For Referral No Information History Of Present Illness Encounter Date Complaint History Of Prese nt Illness No Information Functional Status Date Functional Assessmen t No Information Instructions Date Instruction Additional Infor mation No Information Assessments Type Assessment Date No Information Patient Care Teams Name Effective Dates (start - stop) Status Members No Information
--- OUTSIDE RECORDS SUMMARY | 2024-08-29 13:54 | XMS_ITS | Clinical Summary ---
Author Organization [facility] Address [address], [facility] [address] [place] [address] Phone Care Team Providers Care Operations Support Coordinator Name Role Phone Gagan Stephens MD Unavailable [phone] Favio Mcdowell MD Primary Care Provider Allergies Active Allergy Reactions Criticality Noted Date Comments Tobramycin Other (see Comments) Medium 10/18/2018 Medications sertraline (ZOLOFT) 50 MG Tablet Take 25 mg by mouth daily. Active atorvastatin (LIPITOR) 10 MG Tablet Take 10 mg by mouth daily. Active Aspirin 81 MG Tablet Take 81 mg by mouth three times a week. Active calcium-vitamin D (OSCAL 500/200 D-3) 500-200 MG-UNIT Tablet Take by mouth daily. Active Multiple Vitamins-Minera ls (CENTRUM SILVER PO) Take by mouth. Acti ve Carboxymethylce llul-Glycerin (REFRESH OPTIVE) 0.5-0.9 % Solution Place in affected eye(s). Active Loratadine (CLARITIN) 10 MG Capsule Take 1 Cap by mouth daily. Active omeprazole (PRILOSEC) 20 MG CAPSULE DELAYED RELEASE TAKE ONE CAPSULE BY MOUTH TWICE A DAY 60 Cap 6 7 Active HYDROcodone-vladimir taminophen (NORCO) 5-325 MG Tablet Take 1-2 Tabs by mouth every 4 hours as needed for Mild or more severe pain. 15 Tab 04/22/201 9 Active Additional Information Patient not taking.Reported on 11/05/2018 Active Problems Problem Noted Date Diagnosed Date Lung nodule < 6cm on CT 03/04/2017 Left inguinal hernia 02/04/2017 Umbilical hernia without obstruction and without gangrene 02/04/2017 Gastroesophageal reflux disease 09/16/2016 Immunizations Immunization Administration Dates Next Due Covid-19, Mrna, Lnp-s, Pf, 30 Mcg/0.3 Ml Dose (P fizer) 09/20/2020,08/30/2020 Influenza Vaccine greater than 3 yrs 04/28/2016 Pneumococcal Vaccine Adult - 23 Valent 7 Family History Medical History Relation Name Comments Emphysema Father Heart Disease Father Cancer Maternal Grandmother stomac h Stroke Mother Relation Name Status Comments Father Maternal Grandmother Mother Social History Tobacco Use Types Packs/Day Years Used Date Smoking Tobacco: Former Cigarettes Q uit: 12/04/1957 Smokeless Tobacco: Never Tobacco Cessation:Counseling Given: No Comments:quit 40 years ago Alcohol Use Standard Drinks/Week Comments Yes 0 (1 standard drink = 0.6 oz pur e alcohol) glass of wine nightly. 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 Not on file Not on file Last Filed Vital Signs Vital Sign Reading Time Taken Comments Blood Pressure 154/86 11/05/2018 8:49 AM CDT Pulse 71 11/05/2018 8:49 AM CDT Temperature 35.8 C (96.5 F) 11/05/2018 8:49 AM CDT Respiratory Rate 16 11/05/2018 8:49 AM CDT Oxygen Saturation 95% 11/05/2018 8:49 AM CDT Inhaled Oxygen Concentration - - Weight 68.5 kg (151 lb) 11/05/2018 8:49 AM CDT Height 162.6 cm (5' 4 ) 11/05/2018 8:49 AM CDT Body Mass Index 25.92 11/05/2018 8:49 AM CDT Plan of Treatment Health Maintenance Due Date Last Done Comments DEXA Bone Density 1935 Hepatitis C Virus (HCV) Screening 1935 Respiratory Syncytial Virus (RSV) Immunization (Adult) (1 - 1-dose 75+ series) 2010 Influenza Immunization (#1) 03/06/202403/06, 04/18/2019, 04/02/2017, Additional history exists SARS-COV-2 Immunization ( season) 2024 04/26/2021, 09/20/2020, 08/30/2020 Pneumococcal Immunization (50+ years) Completed 02/04/2018, 03/31/2007 Pneumococcal Immunization Combined Discontinued 02/04/2018, 03/31/2007 DTaP/Tdap/Td Immunization Discontinued 09/11/2018 TdaP Immunization Completed 09/11/2018 Zoster Immunization Completed 11/23/2018, 02/21/2018, 02/20/2018 Hepatitis B Immunization Aged Out No longer eligible based on patient's age to complete this topic Meningococcal Immunization (ACWY) Aged Out No longer eligible based on patient's age to complete this topic Rotavirus Immunization Aged Out No lo nger eligible based on patient's age to complete this topic Medical Devices Implanted Type Area Raspberry Checker Device Identifier Shelf Expiration Date Model / Serial / Lot Mesh Bard 3d Max Med 3x5in L - [id number] Implanted:Qty: 1 on 02/16/2017 by Gagan Stephens MD at [facility] IMPLANT Left: Abdomen CR BARD / DAVOL 06/02/2021 [id number] / [id number] / [id number] Mesh Srg Ventralight St Sepra Echo Ps 4.5in Mfl Ltwt Abs Loprfl Strl Seprafilm Polyp Hydrogel [place] - [id number] Implanted:Qty: 1 on 10/25/2018 by Gagan Stephens MD at [facility] IMPLANT N/A: Umbilical Bard [employer] 06/02/2020 [id number] / [id number] / [id number] Insurance MEDICARE Care Teams Operations Support Coordinator Relationship Specialty Start Date End Date Favio Mcdowell MD PCP - General Family Medicine 07/03/17 Gagan Stephens MD General Surgery 12/19/16
--- OUTSIDE RECORDS SUMMARY | 2024-08-29 13:54 | XMS_ITS | Referral Summary ---
Author Organization [facility] [address] Address [address] ? [place] [address] Phone Care Team Providers Care Conveyor Belt Repairer Name Role Phone Favio Mcdowell MD Primary [...] (04/19/2020): Added automatically from request for surgery [id number] Lung nodule < 6cm on CT 03/04/2017 [...] 03/31/2007 Tdap 04/18/2020,09/11/2018 ZOSTER Recombinant 11/23/2018,02/21/2018, 018 Social History Tobacco Use Types Packs/Day Years Used Date Smoking Tobacco: Former Cigarettes 1 16 1 953 - 1835 Smokeless Tobacco: Never Tobacco Cessation:Counseling Given: Yes Comments:Smoking History Packs/day: 1 Packs Alcohol Use Standard Drinks/Week Comments Yes 0 (1 standard drink = 0.6 oz pur e alcohol) Social Connection and Isolation Panel [NHANES] A nswer Date Recorded Frequency of Communication with Friends and Fami ly Not on file 01/30/2020 Frequency of Social Gatherings with Friends and Family Not on file 01/30/2020 Attends Quaker Services Not on file 01/29 Active Member of Clubs or Organizations Not on f ile 01/30/2020 Attends Club or Organization Meetings Not on luis eduardo e 01/30/2020 Are you , , di vorced, , never , or living with a partner? 01/30/2020 Comments No Sex and Gender Information Value Date Recorded Sex Assigned at Not on file Legal Sex Female 8:29 PM VAMP PRESSER Gender Identity Not on file Sexual Orientation Not on file Occupation Industry Job Start Date Job End Date Retired Not on file Not on file Not on file Last Filed Vital Signs Vital Sign Reading Time Taken Comments Blood Pressure 130/60 05/11/2024 2:24 PM VAMP PRESSER Pulse 68 04/20/2020 11:37 AM CDT Temperature 36.7 C (98.1 F) 04/20/2020 9:05 AM CDT Respiratory Rate 16 04/20/2020 9:05 AM CDT Oxygen Saturation 93% 04/20/2020 11:37 AM CDT Inhaled Oxygen Concentration - - Weight 68 kg (150 lb) 05/11/2024 2:24 PM VAMP PRESSER Height 160 cm (5' 3 ) 05/11/2024 2:24 PM VAMP PRESSER Body Mass Index 26.57 05/11/2024 2:24 PM VAMP PRESSER Plan of Treatment Not on file Medical Devices Implanted Type Area Trauma Surgeon Device Identifier Shelf Expiration Date Model / Serial / Lot Synthes 2.4mm 16mm Self Tap Lock Variable Angle Stardrive T8 Screw Bone - [id number] Implanted:Qty: 2 on 04/19/2020 at [facility] Synthes I 02.210.116 / / Synthes . 2.4mm 18mm Self Tap Lock Variable Angle Stardrive T8 Screw Bone - [id number] Implanted:Qty: 2 on 04/19/2020 at [facility] Synthes I 02.210.118 / / Synthes 249.679 Lcp 59mm 7 Hole Shaft Low Profile Cut To Length Condylar Plate - [id number] Implanted:Qty: 1 on 04/19/2020 at [facility] Synthes I 249.679 / / Synthes 202.874 2.7mm 5mm 14mm 2.5mm Self Tap Stardrive Cortical T8 Screw Bone - [id number] Implanted:Qty: 2 on 04/19/2020 at [facility] Synthes I 202.874 / / Plate 22mm Std Xlong 109mm Ss 2.4/2.7mm Screw 6 Hole Head 7 - [id number] Implanted:Qty: 1 on 04/19/2020 by Esthela Clark MD at [facility] Pixifly I 11/02/2029 02.111.671S / / [id number] Synthes 201.762 2.4mm 12mm Self Tap Stardrive Cortex T8 Screw Bone - [id number] Implanted:Qty: 1 on 04/19/2020 at [facility] Synthes I 201.762 / / Synthes 201.764 2.4mm 14mm Self Tap Stardrive Cortex T8 Screw Bone - [id number] Implanted:Qty: 2 on 04/19/2020 at [facility] Synthes I 201.764 / / Synthes 212.814 2.4mm 1.9mm 14mm Self Tap Lock Stardrive Conical Head T8 Screw - [id number] Implanted:Qty: 2 on 04/19/2020 at [facility] Synthes I 212.814 / / Synthes 212.810 2.4mm 1.9mm 10mm Self Tap Lock Stardrive Conical Head T8 Screw - [id number] Implanted:Qty: 2 on 04/19/2020 at [facility] Synthes I 212.810 / / Explanted Type Area Trauma Surgeon Device Identifier Shelf Expiration Date Model / Serial / Lot [employer] [id number] Kimber .062in 9in 1 Trocar Smooth Wire Fixation - [id number] Explanted:Qty: 3 on 04/19/2020 at [facility] [employer] [id number] / / [employer] [id number] Kimber .062in 9in 1 Trocar Smooth Wire Fixation - [id number] Explanted:Qty: 1 on 04/19/2020 at [facility] [employer] [id number] / / Synthes 201.772 2.4mm 22mm Self Tap Stardrive Cortex T8 Screw Bone - [id number] Explanted:Qty: 1 on 04/19/2020 at [facility] Synthes I 201.772 / / Synthes 201.762 2.4mm 12mm Self Tap Stardrive Cortex T8 Screw Bone - [id number] Explanted:Qty: 1 on 04/19/2020 at [facility] Synthes I 201.762 / / Synthes 201.764 2.4mm 14mm Self Tap Stardrive Cortex T8 Screw Bone - [id number] Explanted:Qty: 1 on 04/19/2020 at [facility] Synthes I 201.764 / / Insurance MEDICARE [facility] MEDICARE [facility] MEDICARE [employer] Advance Directives For more information, please contact: [phone] * Full Code (Latest Code Status on File) Date Activated Date Inactivated Comments 04/19/2020 5:24 AM 04/20/2020 8:31 PM Care Teams Conveyor Belt Repairer Relationship Specialty Start Date End Date Favio Mcdowell MD PCP - General Family Practice 05/07/20
== END 2024-08-29 12:15 | disposition home or self-care (01) ==
LOC: ANHIMG 12:15
PROVIDERS: PCP Family Medicine; Visit Provider Family Medicine
DX: M85.89 Other specified disorders of bone density and structure, multiple sites (principal); Z78.0 Asymptomatic menopausal state
CPT/HCPCS: 77080

== ENCOUNTER 2025-01-17 09:19 | Outpatient (CLI) | payer MEDICARE, OTHER, SELFPAY ==
--- OUTSIDE RECORDS SUMMARY | 2025-01-17 09:33 | XMS_ITS | Continuity of Care Document ---
Author Organization [facility] Address [address] [place] [address] Phone Care Team Providers Care Chronic Condition Nurse Name Role Phone [facility] Unavailable [...] Diagnoses Date Provider Providers Copied on Encounter [facility], [address], [place], [place], [id number], [place] tel:[phone] [facility] No Information 9201 0 [facility] . [address] [facility], [address], [place], [place], [address], [place]. tel:[phone] Referring Provider: Oleg Dorman, [address], [place], [address]. tel:[phone] g Provider: Mell Saab, [address] [facility], [place], [address]. tel:[phone] [facility], [address], [place], [place], [id number], tel:[phone] [facility] No Information 201 0 Heath Dejesus. [address] , [address], [place], [place], [facility], . tel:[phone] [facility], [address] [place] [address] [address], [place], [place], [id number], [place] tel:[phone] [facility] No Information Sep-1 5200 8 Heath Dejesus. [address] [facility] , [address], [place], [place], [facility], . tel:[phone] [facility], [address], [place], [place], [id number], tel:[phone] [facility] No Information Sep-1 5200 8 [facility] . [address] [facility], [address], [place], [place], [address], . tel:[phone] Referring Provider: Oleg Dorman, [address] [place], [place] [address], [place], [place], [facility]. tel:[phone] wagner Provider: Viridiana Andres, [address] [place] [address], [facility]. tel:[phone] [facility], [address], [place], [place], [address], tel:[phone] [facility] No Information Sep-0 5200 7 Heath Dejesus. [facility] , [address], [place], [place], [facility], . tel:[phone] Family History Family Member Type Diagnosis Age [...]
--- OUTSIDE RECORDS SUMMARY | 2025-01-17 09:33 | XMS_ITS | Clinical Summary ---
Author Organization [facility] [address] Address [address] [place] [address] Phone Care Team Providers Care Nuclear Chemistry Technician Name Role Phone Favio Mcdowell MD Primary [...] (04/19/2020): Added automatically from request for surgery [id number] Lung nodule < 6cm on CT 03/04/2017 [...] and Family Not on file 01/30/2020 Attends Jainism Services Not on file 01/29 Active Member of Clubs or Organizations Not on f ile 01/30/2020 Attends Club or Organization Meetings Not on luis eduardo e 01/30/2020 Are you , , di vorced, , never , or living with a partner? 01/30/2020 Comments No Sex and Gender Information Value Date Recorded Sex Assigned at Not on file Legal Sex Female 8:29 PM FILTER PRESS OPERATOR Gender Identity Not on file Sexual Orientation [...] Comments Blood Pressure 130/60 05/11/2024 2:24 PM FILTER PRESS OPERATOR Pulse 68 04/20/2020 11:37 AM CDT Temperature 36.7 C (98.1 F) 04/20/2020 9:05 AM CDT Respiratory Rate 16 04/20/2020 9:05 AM CDT Oxygen Saturation 93% 04/20/2020 11:37 AM CDT Inhaled Oxygen Concentration - - Weight 68 kg (150 lb) 05/11/2024 2:24 PM FILTER PRESS OPERATOR Height 160 cm (5' 3) 05/11/2024 2:24 PM FILTER PRESS OPERATOR Body Mass Index 26.57 05/11/2024 2:24 PM FILTER PRESS OPERATOR Plan of Treatment Health Maintenance Due Date Last Done Comments Depression Screening 1935 Osteoporosis Screening-Bone Density Scan 1935 Hepatitis B Screening 1953 Well Visit 65+ 2000 Fall Risk Assessment 04/19/2021 04/19/2020 Covid-19 Vaccine (3 - 2023-2 5 season) 2024 09/20/2020, 08/30/2020 Influenza Vaccine (#1) 2025 0, 03/20/2020, 04/18/2019, Additional history exists DTaP/Tdap/Td Vaccine (3 - Td or Tdap) 04/18/2030 04/18/2020, 09/11/2018 Pneumococcal vaccine 65+ Completed 018, 02/04/2018, 03/31/2007 Zoster Vaccine Completed 11/23/2018, 02/03, 02/20/2018 Medical Devices Implanted Type Area Floor Assembler Device Identifier Shelf Expiration Date Model / Serial / Lot Synthes 02.210.116 2.4mm 16mm Self Tap Lock Variable Angle Stardrive T8 Screw Bone - [id number] Implanted:Qty: 2 on 04/19/2020 at [facility] Synthes I 02.210.116 / / Synthes 02.118 2.4mm 18mm Self Tap Lock Variable Angle Stardrive T8 Screw Bone - [id number] Implanted:Qty: 2 on 04/19/2020 at [facility] Synthes I 02.210.118 / / Synthes 249.679 Lcp 59mm 7 Hole Shaft Low Profile Cut To Length Condylar Plate - [id number] Implanted:Qty: 1 on 04/19/2020 at [facility] Synthes I 249.679 / / Synthes 202.874 2.7mm 5mm 14mm 2.5mm Self Tap Stardrive Cortical T8 Screw Bone - [id number] Implanted:Qty: 2 on 04/19/2020 at [facility] Synthes I 202.874 / / Plate 22mm Std Xlong 109mm Ss 2.4/2.7mm Screw 6 Hole Head 7 - [id number] Implanted:Qty: 1 on 04/19/2020 by Esthela Clark MD at [facility] Synthes I 11/02/2029 02.111.671S / / [id number] Synthes 201.762 2.4mm 12mm Self Tap Stardrive Cortex T8 Screw Bone - [id number] Implanted:Qty: 1 on 04/19/2020 at [facility] Synthes I 201.762 / / Synthes 201.764 2.4mm 14mm Self Tap Stardrive Cortex T8 Screw Bone - [id number] Implanted:Qty: 2 on 04/19/2020 at [facility] Synthes I 201.764 / / Synthes 212.814 2.4mm 1.9mm 14mm Self Tap Lock Stardrive Conical Head T8 Screw - [id number] Implanted:Qty: 2 on 04/19/2020 at [facility] Synthes I 212.814 / / Synthes 212.810 2.4mm 1.9mm 10mm Self Tap Lock Stardrive Conical Head T8 Screw - [id number] Implanted:Qty: 2 on 04/19/2020 at [facility] Synthes I 212.810 / / Explanted Type Area Floor Assembler Device Identifier Shelf Expiration Date Model / Serial / Lot [employer] [id number] Kimber .062in 9in 1 Trocar Smooth Wire Fixation - [id number] Explanted:Qty: 3 on 04/19/2020 at [facility] [employer] 3062-0140 / / [employer] [id number] Kimber .062in 9in 1 [employer]car Smooth Wire Fixation - [id number] Explanted:Qty: 1 on 04/19/2020 at [facility] [employer] [id number] / / Synthes 201.772 2.4mm 22mm Self Tap Stardrive Cortex T8 Screw Bone - [id number] Explanted:Qty: 1 on 04/19/2020 at [facility] Synthes I 201.772 / / Synthes 201.762 2.4mm 12mm Self Tap Stardrive Cortex T8 Screw Bone - [id number] Explanted:Qty: 1 on 04/19/2020 at [facility] Synthes I 201.762 / / Synthes 201.764 2.4mm 14mm Self Tap Stardrive Cortex T8 Screw Bone - [id number] Explanted:Qty: 1 on 04/19/2020 at [facility] Synthes I 201.764 / / Insurance [facility] MEDICARE [facility] MEDICARE [facility] Advance Directives For more information, please contact: [phone] * Full Code (Latest Code Status on File) Date Activated Date Inactivated Comments 04/19/2020 5:24 AM 04/20/2020 8:31 PM Care Teams Nuclear Chemistry Technician Relationship Specialty Start Date End Date Favio Mcdowell MD PCP - General Family Practice 05/07/20
--- OUTSIDE RECORDS SUMMARY | 2025-01-17 09:33 | XMS_ITS | Referral Summary ---
Author Organization [facility] [address] Address [address] [place] [address] Phone Care Team Providers Care Director Of Customer Acquisition Name Role Phone Favio Mcdowell MD Primary [...] (04/19/2020): Added automatically from request for surgery [id number] Lung nodule < 6cm on CT 03/04/2017 [...] Former Cigarettes 1 16 1 [phone] - [phone] Smokeless Tobacco: Never Tobacco Cessation:Counseling Given: Yes Comments:Smoking History Packs/day: 1 Packs Alcohol Use Standard Drinks/Week Comments Yes 0 (1 standard drink = 0.6 oz pur e alcohol) Social Connection and Isolation Panel [NHANES] A nswer Date Recorded Frequency of Communication with Friends and Fami ly Not on file 01/30/2020 Frequency of Social Gatherings with Friends and Family Not on file 01/30/2020 Attends Judaism Services Not on file 01/29 Active Member of Clubs or Organizations Not on f ile 01/30/2020 Attends Club or Organization Meetings Not on luis eduardo e 01/30/2020 Are you , , di vorced, , never , or living with a partner? 01/30/2020 Comments No Sex and Gender Information Value Date Recorded Sex Assigned at Not on file Legal Sex Female 8:29 PM DIRECTOR OF COUNTERINTELLIGENCE Gender Identity Not on file Sexual Orientation Not on file Occupation Industry Job Start Date Job End Date Retired Not on file Not on file Not on file Last Filed Vital Signs Vital Sign Reading Time Taken Comments Blood Pressure 130/60 05/11/2024 2:24 PM DIRECTOR OF COUNTERINTELLIGENCE Pulse 68 04/20/2020 11:37 AM CDT Temperature 36.7 C (98.1 F) 04/20/2020 9:05 AM CDT Respiratory Rate 16 04/20/2020 9:05 AM CDT Oxygen Saturation 93% 04/20/2020 11:37 AM CDT Inhaled Oxygen Concentration - - Weight 68 kg (150 lb) 05/11/2024 2:24 PM DIRECTOR OF COUNTERINTELLIGENCE Height 160 cm (5' 3) 05/11/2024 2:24 PM DIRECTOR OF COUNTERINTELLIGENCE Body Mass Index 26.57 05/11/2024 2:24 PM DIRECTOR OF COUNTERINTELLIGENCE Plan of Treatment Not on file Medical Devices Implanted Type Area Freight Separator Device Identifier Shelf Expiration Date Model / Serial / Lot Synthes 2.4mm 16mm Self Tap Lock Variable Angle Stardrive T8 Screw Bone - [id number] Implanted:Qty: 2 on 04/19/2020 at [facility] Synthes I 02.210.116 / / Synthes . 2.4mm 18mm Self Tap Lock Variable Angle Stardrive T8 Screw Bone - [id number] Implanted:Qty: 2 on 04/19/2020 at [facility] Synthes I 02.210.118 / / Synthes 249.679 Lcp 59mm 7 Hole Shaft Low Profile Cut To Length Condylar Plate - [id number] Implanted:Qty: 1 on 04/19/2020 at [facility] Synthes I 249.679 / / Synthes 202.874 2.7mm 5mm 14mm 2.5mm Self Tap Stardrive Cortical T8 Screw Bone - [id number] Implanted:Qty: 2 on 04/19/2020 at [facility] Synthes I 202.874 / / Plate 22mm Std Xlong 109mm Ss 2.4/2.7mm Screw 6 Hole Head 7 - [id number] Implanted:Qty: 1 on 04/19/2020 by Esthela Clark MD at [facility] [employer] I 11/02/2029 02.111.671S / / [id number] Synthes 201.762 2.4mm 12mm Self Tap Stardrive Cortex T8 Screw Bone - [id number] Implanted:Qty: 1 on 04/19/2020 at [facility] Synthes I 201.762 / / Synthes 201.764 2.4mm 14mm Self Tap Stardrive Cortex T8 Screw Bone - [id number] Implanted:Qty: 2 on 04/19/2020 at [facility] Synthes I 201.764 / / Synthes 212.814 2.4mm 1.9mm 14mm Self Tap Lock Stardrive Conical Head T8 Screw - [id number] Implanted:Qty: 2 on 04/19/2020 at [facility] Synthes I 212.814 / / Synthes 212.810 2.4mm 1.9mm 10mm Self Tap Lock Stardrive Conical Head T8 Screw - [id number] Implanted:Qty: 2 on 04/19/2020 at [facility] Synthes I 212.810 / / Explanted Type Area Freight Separator Device Identifier Shelf Expiration Date Model / Serial / Lot [employer] [id number] Kimber .062in 9in 1 [employer]car Smooth Wire Fixation - [id number] Explanted:Qty: 3 on 04/19/2020 at [facility] [employer] 3724-9611 / / [employer] [id number] Kimber .062in 9in 1 [employer]car Smooth Wire Fixation - [id number] Explanted:Qty: 1 on 04/19/2020 at [facility] [employer] 8115-6556 / / Synthes 201.772 2.4mm 22mm Self Tap Stardrive Cortex T8 Screw Bone - [id number] Explanted:Qty: 1 on 04/19/2020 at [facility] Synthes I 201.772 / / Synthes 201.762 2.4mm 12mm Self Tap Stardrive Cortex T8 Screw Bone - [id number] Explanted:Qty: 1 on 04/19/2020 at [facility] Synthes I 201.762 / / Synthes 201.764 2.4mm 14mm Self Tap Stardrive Cortex T8 Screw Bone - [id number] Explanted:Qty: 1 on 04/19/2020 at [facility] Synthes I 201.764 / / Insurance MEDICARE [facility] MEDICARE [facility] MEDICARE [employer] Advance Directives For more information, please contact: [phone] * Full Code (Latest Code Status on File) Date Activated Date Inactivated Comments 04/19/2020 5:24 AM 04/20/2020 8:31 PM Care Teams Director Of Customer Acquisition Relationship Specialty Start Date End Date Favio Mcdowell MD PCP - General Family Practice 05/07/20
--- OUTSIDE RECORDS SUMMARY | 2025-01-17 09:33 | XMS_ITS | Continuity of Care Document ---
Author Organization [facility] Address [address] [place] [address] [address] [place] [address] Phone Care Team Providers Care Global Process Owner Name Role Phone Sean GONZALEZ, Dana Unavailable [...] into affected eye(s) Not Available - Active Wanelo [facility]ALTH (unknown strength) Not Available - Active SYSTANE GEL (unknown strength) Not Available - Active SYSTANE (unknown strength) Not Available - Active SYSTANE ULTRA (unknown strength) instill 1 by Ophthalmic route every 2 days Not Available - Active Procedures Procedure Date OFFICE/OUTPATIENT VISIT, NEW Advance Directives Directive Yes / No Effective Date File Name No Information Encounters Encounter Description Practice Location Reason(s) For Visit Diagnoses Date Provider Providers Copied on Encounter OFFICE/OUTPA TIENT VISIT, [facility], [address], [place], [place], [address], [place] tel:[phone] OPH CONSULT ALINA CARRILLO Dry Eye (chief complaint) Keratoconjunctiv itis sicca of both eyes not due to Sjogren's syndromePresence of intraocular lensTrichiasis of right lower eyelid 4 Estrada Erin. [address] [facility] [address] [facility] [address], [address], [place], [place], [address] , [place]. tel: [phone] Referring Provider: No PCP A.. Family History Family Member Type Diagnosis Age At Onset No Information Payers Payer name Insurance type Covered constitution party ID Authoriza tion(s) [place] [id number] [facility] [id number] Social History Type Description Quantity Date Captured [...] Respiratory Rate Body Surface Area Head Circumference Head Circ. Percentile Wt./Kelvin. Percentile BMI percentile Pulse Ox Inhaled Ox 1:21 PM 66.00 in 67.132 kg (148.00 lbs) 23.8 9 kg/m saraer (2) Chief Complaint And Reason For Visit From encounter dated 08/25/2023 11:05'. Dry Eye (chief complaint). Description: The 88 year old female presents for evaluation of Dry Eye. Vision seems stable with current correction. When eyes are lubricated they are comfortable. Eye are dry, watery, and red. OU has BLL eyelashes that turn in and irritate the eye. Pt goes to [facility] to have[place]elashes trimmed. Uses Systane Complete gtts and Systane Night Gel martha during the day and Systane Nighttime martha for Severe dry eye at night. Pt states she occasionally used Ogu-Ajyo-Oth martha/gtts when eyes are really irritated. Has floaters, but does not effect her vision. Has trouble with glare atnight while driving. Denies FOL and distortions.-Has questions about Restasis -Declined new MRx today - has an appt. scheduled with [facility] Reason For Referral Reason For Referral No Information Plan Of Treatment Date Type Action Status [...] and irritate the eye. Pt goes to [facility] to have eyelashes trimmed. Uses Systane Complete gtts and Systane Night Gel martha during the day and Systane Nighttime martha for Severe dry eye at night. Pt states she occasionally used Rcd-Nbvu-Yli martha/gtts when eyes are really irritated. Has floaters, but does not effect her vision. Has trouble with glare at night while driving. Denies FOL and distortions.-Has questions about Restasis -Declined new MRx today - has an appt. scheduled with [facility] Functional Status Date Functional Assessmen t No Information Instructions Date Instruction Additional Infor grey Impression/Plan [...] lower eyelid: H02.052. -ReoccurringThe patient currently visits [facility] for eyelash removal every 3-4 weeks. Patient Care Teams Name Effective Dates (start - stop) Status Members No Information
--- OUTSIDE RECORDS SUMMARY | 2025-01-17 09:33 | XMS_ITS | Encounter Summary ---
Author Organization [facility] Healthcare Address [address] [place] [address] Care Team Providers Care Plate Printer Name Role Phone Jimmy Badillo Primary Care Provider [phone] Favio Mcdowell MD Primary Care Provider Encounter Details Date Type Department Care Team (Late st Contact Info) Description 07/03/2014 Orders Only [facility] [address] [place] [address] Scanning, Provider Social History Tobacco Use Types Packs/Day Years Used Date Smoking Tobacco: Former Cigarettes Q uit: 07/06/1968 Comments:Smoking History Pac ks/day: 1 Packs Alcohol Use Standard Drinks/Week Comments Yes 0 (1 standard drink = 0.6 oz pur e alcohol) Comments Unknown Sex and Gender Information Value Date Recorded Sex Assigned at Not on file Legal Sex Female 8:29 PM ESTIMATING MANAGER Gender Identity Not on file Sexual Orientation [...] on filedocumented in this encounter Care Teams Plate Printer Relationship Specialty Start Date End Date Jimmy Badillo [address] [place] [address] PCP - General 06/22/13 05/06/20 Favio Mcdowell MD [address] [place] [address] PCP - General Family Practice 05/07/20 documented as of this encounter
--- OUTSIDE RECORDS SUMMARY | 2025-01-17 09:33 | XMS_ITS | Clinical Summary ---
Author Organization [facility] Address [address] [place] [address] Phone Care Team Providers Care Hospitality Ambassador Name Role Phone Jimmy Badillo MD Primary Care Provider [phone] Allergies No known active allergies Medications aspirin [...] 1:01 PM CDT Height 165.1 cm (5' 5) 10/13/2012 2:02 PM CDT Body Mass Index 24.26 10/13/2012 2:02 PM CDT Plan of Treatment Health Maintenance Due Date Last Done Comments DTAP/TDAP/TD VACCINES (1 - Tdap) 1954 PNEUMOCOCCAL VACCINE 50+ YEARS (1 of 1 - PCV) 03/19/19 85 ZOSTER VACCINE (1 of 2) 1985 OSTEOPOROSIS SCREENING 2000 RSV VACCINE (60+ or ) (1 - 1-dose 75+ series) 2010 INFLUENZA VACCINE (#1) 2025 Insurance MEDICARE PART A AND B [employer]/TRUE [employer] PPO Advance Directives For more information, please contact: [phone] * Full Code (Latest Code Status on File) Date Activated Date Inactivated Comments 10/28/2012 2:53 PM 10/28/2012 7:29 PM * Full Code Date Activated Date Inactivated Comments 10/28/2012 2:15 PM 10/28/2012 2:53 PM * Full Code Date Activated Date Inactivated Comments 10/28/2012 11:28 AM 10/28/2012 2:15 PM Care Teams Hospitality Ambassador Relationship Specialty Start Date End Date Jimmy Badillo MD [address] [place] [address] PCP - General Family Practice 10/13/12
--- OUTSIDE RECORDS SUMMARY | 2025-01-17 09:33 | XMS_ITS | Clinical Summary ---
Author Organization [facility] Address [address], [facility] [address] [place] [address] Phone Care Team Providers Care Lieutenant/Deputy Name Role Phone Gagan Stephens MD Unavailable [phone] Favio Mcdowell MD Primary Care Provider Allergies [...] 8:49 AM CDT Height 162.6 cm (5' 4) 11/05/2018 8:49 AM CDT Body Mass Index 25.92 11/05/2018 8:49 AM CDT Plan of Treatment Health Maintenance Due Date Last Done Comments Hepatitis C Virus (HCV) Screening 1935 Respiratory Syncytial Virus (RSV) Immunization (Adult) (1 - 1-dose 75+ series) 2010 SARS-COV-2 Immunization ( season) 2024 04/26/2021, 09/20/2020, 08/30/2020 Influenza Immunization (#1) 03/06/202503/06, 04/18/2019, 04/02/2017, Additional history exists Pneumococcal Immunization (50+ years) Completed 02/04/2018, 03/31/2007 Pneumococcal Immunization Combined Discontinued 02/04/2018, 03/31/2007 DTaP/Tdap/Td Immunization Discontinued 09/11/2018 TdaP Immunization Completed 09/11/2018 Zoster Immunization Completed 11/23/2018, 02/21/2018, 02/20/2018 Hepatitis B Immunization Aged Out No longer eligible based on patient's age to complete this topic Human Papillomavirus (HPV) Immunization Aged Out No longer eligible based on patient's age to complete this topic Meningococcal Immunization (ACWY) Aged Out No longer eligible based on patient's age to complete this topic Rotavirus Immunization Aged Out No lo nger eligible based on patient's age to complete this topic Medical Devices Implanted Type Area Metal Roaster Device Identifier Shelf Expiration Date Model / Serial / Lot Mesh Bard 3d Max Med 3x5in L - [id number] Implanted:Qty: 1 on 02/16/2017 by Gagan Stephens MD at [facility] IMPLANT Left: Abdomen CR BARD / DAVOL 06/02/2021 [id number] / [id number] / [id number] [address] Sepra Echo Ps 4.5in Mfl Ltwt Abs Loprfl Strl Seprafilm Polyp Hydrogel [place] - [id number] Implanted:Qty: 1 on 10/25/2018 by Gagan Stephens MD at [facility] IMPLANT N/A: Umbilical Bard [employer]ol Inc 06/02/2020 [id number] / [id number] / [id number] Insurance MEDICARE Care Teams Lieutenant/Deputy Relationship Specialty Start Date End Date Favio Mcdowell MD PCP - General Family Medicine 07/03/17 Gagan Stephens MD General Surgery 12/19/16
[2025-01-17 15:02] LABS: Alanine Aminotransferase 20 U/L (6-35); Albumin Level 4.4 g/dL (3.5-5.1); Alkaline Phosphatase 110 U/L (38-126); Anion Gap 9 mmol/L (4-12); Aspartate Amino Transferase 50 U/L (14-36); Bilirubin,Total 0.7 mg/dL (0.2-1.3); Blood Urea Nitrogen 22 mg/dL (7-17); Calcium 9.8 mg/dL (8.4-10.2); Carbon Dioxide 28 mmol/L (22-30); Chloride 92 mmol/L (98-107); Estimated Glomerular Filt Rate > 60; Glucose 82 mg/dL (65-110); Potassium 5.0 mmol/L (3.4-5.0); Sodium 129 mmol/L (137-145); Total Protein 7.5 g/dL (6.3-8.2)
[2025-01-17 15:21] LABS: Hemoglobin A1C 5.9 % (<5.7)
== END 2025-01-17 09:20 | disposition home or self-care (01) ==
LOC: ANHGOSHLAB 09:19
PROVIDERS: PCP Family Medicine; Visit Provider Family Medicine
DX: R73.03 Prediabetes (principal); I10 Essential (primary) hypertension
CPT/HCPCS: 36415; 80053; 83036

== ENCOUNTER 2025-01-17 09:46 | Outpatient (CLI) | payer MEDICARE, OTHER, SELFPAY ==
--- NOTE | ~2025-01-17 | XR_ITS ---
Left Knee Technique: AP, lateral, and sunrise views were obtained. Clinical History: Injury Findings: No fracture or dislocation is seen. 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 No joint effusion is p resent. There is soft tissue swelling/edema anteriorly the infrapatellar region, superficial to the p atellar tendon. Impression: Soft tissue swelling or edema at the infrapatellar region anteriorly. No acute osseous or articular abnormality seen. 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 Reviewed, dictated and finalized at location M. Impression: Soft tissue swelling or edema at the infrapatellar region anteriorly. No acute osseous or articular abnormality seen. 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
== END 2025-01-17 09:47 | disposition home or self-care (01) ==
PROVIDERS: PCP Family Medicine; Visit Provider Family Medicine
DX: M25.462 Effusion, left knee (principal); Z96.652 Presence of left artificial knee joint; S89.92XA Unspecified injury of left lower leg, initial encounter; X58.XXXA Exposure to other specified factors, initial encounter
CPT/HCPCS: 73564

== ENCOUNTER 2025-02-20 14:28 | Outpatient (CLI) | payer MEDICARE, OTHER, SELFPAY ==
--- OUTSIDE RECORDS SUMMARY | 2025-02-20 15:36 | XMS_ITS | Clinical Summary ---
Author Organization [facility] Address [address], [facility] [address] [place] [address] Phone Care Team Providers Care Equipment Oiler Name Role Phone Gagan Stephens MD Unavailable [phone] Favio Mcdowell MD Primary Care Provider Allergies [...] this topic Medical Devices Implanted Type Area Hot Frame Tender Device Identifier Shelf Expiration Date Model / Serial / Lot Mesh Bard 3d Max Med 3x5in L - [id number] Implanted:Qty: 1 on 02/16/2017 by Gagan Stephens MD at [facility] IMPLANT Left: Abdomen CR BARD / DAVOL 06/02/2021 [id number] / [id number] / [id number] Sepra Echo Ps 4.5in Mfl Ltwt Abs Loprfl Strl Seprafilm Polyp Hydrogel [place] - [id number] Implanted:Qty: 1 on 10/25/2018 by Gagan Stephens MD at [facility] IMPLANT N/A: Umbilical Bard [employer]ol [employer] 06/02/2020 [id number] / [id number] / [id number] Insurance MEDICARE Care Teams Equipment Oiler Relationship Specialty Start Date End Date Favio Mcdowell MD PCP - General Family Medicine 07/03/17 Gagan Stephens MD General Surgery 12/19/16
--- OUTSIDE RECORDS SUMMARY | 2025-02-20 15:36 | XMS_ITS | Encounter Summary ---
Author Organization [facility] Healthcare Address [address] [place] [address] Care Team Providers Care Lumber Tripper Name Role Phone Jimmy Badillo Primary Care Provider [phone] Favio Mcdowell MD Primary Care Provider Encounter Details Date Type Department Care Team (Late st Contact Info) Description 07/03/2014 Orders Only [facility] [address] [place] [address] Scanning, Provider Social History Tobacco Use Types Packs/Day Years Used Date Smoking Tobacco: Former Cigarettes Q uit: 07/06/1968 Comments:Smoking History Pac ks/day: 1 Packs Alcohol Use Standard Drinks/Week Comments Yes 0 (1 standard drink = 0.6 oz pur e alcohol) Comments Unknown Sex and Gender Information Value Date Recorded Sex Assigned at Not on file Legal Sex Female 8:29 PM METEOROLOGICAL AIDE Gender Identity Not on file Sexual Orientation [...] on filedocumented in this encounter Care Teams Lumber Tripper Relationship Specialty Start Date End Date Jimmy Badillo [address] [place] [address] PCP - General 06/22/13 05/06/20 Favio Mcdowell MD [address] [place] [address] PCP - General Family Practice 05/07/20 documented as of this encounter
--- OUTSIDE RECORDS SUMMARY | 2025-02-20 15:36 | XMS_ITS | Continuity of Care Document ---
Author Organization [facility] Address [address] [place] [address] Phone Care Team Providers Care Energy Audit Advisor Name Role Phone [facility] Unavailable [...] Diagnoses Date Provider Providers Copied on Encounter [facility], [address], [place], [place], [address], [place] tel:[phone] [facility] No Information 9201 0 [facility] . [address] [facility] [address], [address], [place], [place], [address], [place]. tel:[phone] Referring Provider: Oleg Dorman, [address], [place], [address]. tel:[phone] g Provider: Mell Saab, [address] [facility], [place], [address]. tel:[phone] [facility], [address], [place], [place], [address], tel:[phone] [facility] No Information 201 0 Heath Dejesus. [address] , [address], [place], [place], [facility], . tel:[phone] [facility], [address] [place] [address] [address], [place], [place], [address], [place] tel:[phone] [facility] No Information Sep-1 5200 8 Heath Dejesus. [address] , [address], [place], [place], [facility], . tel:[phone] [facility], [address], [place], [place], [address], tel:[phone] [facility] No Information Sep-1 5200 8 [facility] . [address], [address], [place], [place], [address], . tel:[phone] Referring Provider: Oleg Dorman, [address] [place], [place] [address], [place], [place], [facility]. tel:[phone] wagner Provider: Viridiana Andres, [address] [place] [address], [facility]. tel:[phone] [facility], [address], [place], [place], [address], tel:[phone] [facility] No Information Sep-0 5200 7 Heath Dejesus. [facility] [facility] , [address], [place], [place], [facility], . tel:[phone] Family History Family Member Type Diagnosis Age [...]
--- OUTSIDE RECORDS SUMMARY | 2025-02-20 15:36 | XMS_ITS | Clinical Summary ---
Author Organization [facility] [address] Address [address] [place] [address] Phone Care Team Providers Care Mastercam Programmer Name Role Phone Favio Mcdowell MD Primary [...] (04/19/2020): Added automatically from request for surgery [id number] Lung nodule < 6cm on CT 03/04/2017 [...] e alcohol) Social Connection and Isolation Panel Answer Date Recorded Frequency of Communication with Friends and Fami ly Not on file 01/30/2020 Frequency of Social Gatherings with Friends and Family Not on file 01/30/2020 Attends Oriental [employer] Services Not on file 01/29 Active Member of Clubs or Organizations Not on f ile 01/30/2020 Attends Club or Organization Meetings Not on luis eduardo e 01/30/2020 Are you , , di vorced, , never , or living with a partner? 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 Gender Identity Not on file Sexual Orientation [...] Comments Blood Pressure 130/60 05/11/2024 2:24 PM LIFT TRUCK MECHANIC Pulse 68 04/20/2020 11:37 AM CDT Temperature 36.7 C (98.1 F) 04/20/2020 9:05 AM CDT Respiratory Rate 16 04/20/2020 9:05 AM CDT Oxygen Saturation 93% 04/20/2020 11:37 AM CDT Inhaled Oxygen Concentration - - Weight 68 kg (150 lb) 05/11/2024 2:24 PM LIFT TRUCK MECHANIC Height 160 cm (5' 3) 05/11/2024 2:24 PM LIFT TRUCK MECHANIC Body Mass Index 26.57 05/11/2024 2:24 PM LIFT TRUCK MECHANIC Plan of Treatment Health Maintenance Due Date [...] 02/03, 02/20/2018 Medical Devices Implanted Type Area Annual Greenhouse Manager Device Identifier Shelf Expiration Date Model / Serial / Lot Synthes 02.210.116 2.4mm 16mm Self Tap Lock Variable Angle Stardrive T8 Screw Bone - [id number] Implanted:Qty: 2 on 04/19/2020 at [facility] Synthes I 02.210.116 / / Synthes 02.118 2.4mm 18mm Self Tap Lock Variable Angle Stardrive T8 Screw Bone - [id number] Implanted:Qty: 2 on 04/19/2020 at [facility] Synthes I 02.210.118 / / Synthes 249.679 Lcp 59mm 7 Hole Shaft Low Profile Cut To Length Condylar Plate - [id number] Implanted:Qty: 1 on 04/19/2020 at [facility] Synthes I 249.679 / / Synthes 202.874 2.7mm 5mm 14mm 2.5mm Self Tap Stardrive Cortical T8 Screw Bone - [id number] Implanted:Qty: 2 on 04/19/2020 at [facility] Synthes I 202.874 / / Plate 22mm Std Xlong 109mm Ss 2.4/2.7mm Screw 6 Hole Head 7 - [id number] Implanted:Qty: 1 on 04/19/2020 by Esthela Clark MD at [facility] Synthes I 11/02/2029 02.111.671S / / [id number] Synthes 201.762 2.4mm 12mm Self Tap Stardrive Cortex T8 Screw Bone - [id number] Implanted:Qty: 1 on 04/19/2020 at [facility] Synthes I 201.762 / / Synthes 201.764 2.4mm 14mm Self Tap Stardrive Cortex T8 Screw Bone - [id number] Implanted:Qty: 2 on 04/19/2020 at [facility] Synthes I 201.764 / / Synthes 212.814 2.4mm 1.9mm 14mm Self Tap Lock Stardrive Conical Head T8 Screw - [id number] Implanted:Qty: 2 on 04/19/2020 at [facility] Synthes I 212.814 / / Synthes 212.810 2.4mm 1.9mm 10mm Self Tap Lock Stardrive Conical Head T8 Screw - [id number] Implanted:Qty: 2 on 04/19/2020 at [facility] Synthes I 212.810 / / Explanted Type Area Annual Greenhouse Manager Device Identifier Shelf Expiration Date Model / Serial / Lot [employer] [id number] Kimber .062in 9in 1 Trocar Smooth Wire Fixation - [id number] Explanted:Qty: 3 on 04/19/2020 at [facility] [employer] [id number] / / [employer] [id number] Kimber .062in 9in 1 Trocar Smooth Wire Fixation - [id number] Explanted:Qty: 1 on 04/19/2020 at [facility] [employer] [id number] / / Synthes 201.772 2.4mm 22mm Self Tap Stardrive Cortex T8 Screw Bone - [id number] Explanted:Qty: 1 on 04/19/2020 at [facility] Synthes I 201.772 / / Synthes 201.762 2.4mm 12mm Self Tap Stardrive Cortex T8 Screw Bone - [id number] Explanted:Qty: 1 on 04/19/2020 at [facility] Synthes I 201.762 / / Synthes 201.764 2.4mm 14mm Self Tap Stardrive Cortex T8 Screw Bone - [id number] Explanted:Qty: 1 on 04/19/2020 at [facility] Synthes I 201.764 / / Insurance MEDICARE [facility] MEDICARE [facility] MEDICARE [facility] MEDICARE [facility] Advance Directives For more information, please contact: [phone] * Full Code (Latest Code Status on File) Date Activated Date Inactivated Comments 04/19/2020 5:24 AM 04/20/2020 8:31 PM Care Teams Mastercam Programmer Relationship Specialty Start Date End Date Favio Mcdowell MD PCP - General Family Practice 05/07/20
--- OUTSIDE RECORDS SUMMARY | 2025-02-20 15:36 | XMS_ITS | Clinical Summary ---
Author Organization [facility] Address [address] [place] [address] Phone Care Team Providers Care Residential Driver Name Role Phone Jimmy Badillo MD Primary Care Provider [phone] Allergies No known active allergies Medications aspirin [...] 2025 Insurance MEDICARE PART A AND B [employer] PPO Advance Directives For more information, please contact: [phone] * Full Code (Latest Code Status on File) Date Activated Date Inactivated Comments 10/28/2012 2:53 PM 10/28/2012 7:29 PM * Full Code Date Activated Date Inactivated Comments 10/28/2012 2:15 PM 10/28/2012 2:53 PM * Full Code Date Activated Date Inactivated Comments 10/28/2012 11:28 AM 10/28/2012 2:15 PM Care Teams Residential Driver Relationship Specialty Start Date End Date Jimmy Badillo MD [address] [place] [address] PCP - General Family Practice 10/13/12
--- OUTSIDE RECORDS SUMMARY | 2025-02-20 15:36 | XMS_ITS | Continuity of Care Document ---
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 [address], [place], [place], [address] , [place]. tel: [phone] Referring Provider: No PCP A.. Family History Family Member Type Diagnosis Age At Onset No Information Payers Payer name Insurance type Covered green party ID Authoriza tion(s) [place] [id number] [facility] [id number] Social History Type Description Quantity Date Captured [...] and irritate the eye. Pt goes [place] [facility] [place] have[facility]elashes trimmed. Uses Systane Complete gtts and Systane Night Gel martha during the day and Systane Nighttime martha for Severe dry eye at night. Pt states she occasionally used Uzm-Xxgi-Rvc martha/gtts when eyes are really irritated. Has [...] and irritate the eye. Pt goes to [facility] to have eyelashes trimmed. Uses Systane Complete gtts and Systane Night Gel martha during the day and Systane Nighttime martha for Severe dry eye at night. Pt states she occasionally used Bkh-Vbzi-Xjp martha/gtts when eyes are really irritated. Has floaters, but does not effect her vision. Has trouble with glare at night while driving. Denies FOL and distortions.-Has questions about Restasis -Declined new MRx today - has an appt. scheduled with [facility] Functional Status Date Functional Assessmen t No [...] lower eyelid: H02.052. -ReoccurringThe patient currently visits [facility] for eyelash removal every 3-4 weeks. Patient Care Teams Name Effective Dates (start - stop) Status Members No Information
[2025-02-20 20:14] LABS: Alanine Aminotransferase 25 U/L (6-35); Albumin Level 4.2 g/dL (3.5-5.1); Alkaline Phosphatase 81 U/L (38-126); Anion Gap 7 mmol/L (4-12); Aspartate Amino Transferase 47 U/L (14-36); Bilirubin,Total 0.4 mg/dL (0.2-1.3); Blood Urea Nitrogen 25 mg/dL (7-17); Calcium 9.5 mg/dL (8.4-10.2); Carbon Dioxide 29 mmol/L (22-30); Chloride 91 mmol/L (98-107); Estimated Glomerular Filt Rate 53; Glucose 102 mg/dL (65-110); Potassium 4.3 mmol/L (3.4-5.0); Sodium 127 mmol/L (137-145); Total Protein 6.8 g/dL (6.3-8.2)
== END 2025-02-20 14:29 | disposition home or self-care (01) ==
LOC: ANHGOSHLAB 14:29
PROVIDERS: PCP Family Medicine; Visit Provider Family Medicine
DX: E87.1 Hypo-osmolality and hyponatremia (principal); I10 Essential (primary) hypertension
CPT/HCPCS: 36415; 80053